=== PATIENT | male | born 1970 | race African-American/Black ===

== ENCOUNTER 2019-04-19 12:19 | Emergency (ER) | payer OTHER ==
[~2019-04-19] VITALS: Ht 198.1 cm; Wt 108.9 kg
[~2019-04-19 12:19] MED LIST: ASPIRIN325 PO; CARAFATE 11 GM/10 M1 PO; LIPITOR40 MG PO; LISINOPRIL10 MG PO; PEPCID20 MG PO; PLAVIX 75 MG TA75 M1 PO; PRILOSEC 20 MG20 MG PO; PRILOSEC40 MG PO; TOPROL XL25 MG PO
[2019-04-19 12:51] LABS: HEMATOCRIT 48.7 % (42.0-52.0); HEMOGLOBIN 16.1 gm/dL (14.0-18.0); MCH 27.2 pg (26.0-34.0); MCHC 33.1 g/dL (28.0-37.0); MCV 82.3 fL (80.0-100.0); PLATELET COUNT 333 thou/uL (150-400); RBC 5.92 mil/uL (4.50-6.00); RDW 16.7 % (10.5-14.5); WBC 7.4 thou/uL (4.0-11.0)
[2019-04-19 12:55] LABS: URINE BILIRUBIN NEGATIVE (Negative); URINE BLOOD NEGATIVE (Negative); URINE CLARITY CLEAR; URINE COLOR YELLOW; URINE GLUCOSE-RANDOM* NEGATIVE (Negative); URINE KETONES NEGATIVE (Negative); URINE LEUKOCYTES TRACE (Negative); URINE NITRITE NEGATIVE (Negative); URINE PROTEIN (DIPSTICK) NEGATIVE (Negative); URINE SPECIFIC GRAVITY <= 1.005 (1.005-1.035)
[2019-04-19 12:55] LABS: CALCIUM 10.1 mg/dL (8.5-10.1); CREATININE 1.2 mg/dL (0.7-1.3)
[2019-04-19 13:00] LABS: ALBUMIN 4.1 g/dL (3.4-5.0); TOTAL BILIRUBIN 0.4 mg/dL (<0.1-1.0); TOTAL PROTEIN 8.6 g/dL (6.4-8.2)
[2019-04-19 14:01] LABS: ABSOLUTE NEUTROPHILS 3.5 thou/uL (1.4-8.2); PLATELET ESTIMATE NORMAL
[2019-04-19 14:43] VITALS: BP 158/86
== END 2019-04-19 14:43 | disposition home or self-care (01) ==
LOC: ER 12:19
PROVIDERS: Nurse Practitioner
DX: K85.90 Acute pancreatitis without necrosis or infection, unspecified (principal); I10 Essential (primary) hypertension; F17.210 Nicotine dependence, cigarettes, uncomplicated; R11.2 Nausea with vomiting, unspecified

== ENCOUNTER 2019-12-24 18:47 | Inpatient (IN) | payer OTHER ==
[~2019-12-24] VITALS: Ht 195.6 cm; Wt 108.0 kg
[2019-12-24 18:49] VITALS: BP 110/70
[2019-12-24 19:03] LABS: ABSOLUTE NEUTROPHILS 6.1 thou/uL (1.4-8.2); BASOPHILS 0.8 % (0.0-2.0); EOSINOPHILS 1.9 % (0.0-3.0); HEMATOCRIT 42.1 % (42.0-52.0); HEMOGLOBIN 13.2 gm/dL (14.0-18.0); MCH 25.4 pg (26.0-34.0); MCHC 31.3 g/dL (28.0-37.0); MCV 81.1 fL (80.0-100.0); MONOCYTES 8.7 % (1.0-8.0); PLATELET COUNT 374 thou/uL (150-400); POLYS 44.6 % (36.0-66.0); RBC 5.19 mil/uL (4.50-6.00); RDW 16.4 % (10.5-14.5); WBC 13.7 thou/uL (4.0-11.0)
[2019-12-24 19:22] LABS: CALCIUM 8.7 mg/dL (8.5-10.1); CREATININE 1.6 mg/dL (0.7-1.3); POTASSIUM 3.4 mmol/L (3.5-5.1); TROPONIN-I 0.06 ng/mL (<0.06)
[2019-12-24 19:32] VITALS: BP 104/69
--- NOTE | 2019-12-24 21:06 | NUR ---
CHECKED WITH [facility] FOR RESPONSE TIMES, EMS INITIAL CALL AT 1805 RESPONSE TIME BY FIRE 1806 11 MINUTES OF CPR BY FIRE/EMS DEPARTED SCENE 183
[2019-12-24 23:00] VITALS: BP 110/71
[2019-12-25] VITALS (21 sets, daily range): BP systolic 111–135; BP diastolic 64–87
[2019-12-25 04:39] LABS: HEMATOCRIT 28.9 % (42.0-52.0); MCH 25.9 pg (26.0-34.0); MCHC 32.9 g/dL (28.0-37.0); MCV 78.6 fL (80.0-100.0); RBC 3.68 mil/uL (4.50-6.00); RDW 15.5 % (10.5-14.5); WBC 10.7 thou/uL (4.0-11.0)
[2019-12-25 04:45] LABS: HEMOGLOBIN 9.5 gm/dL (14.0-18.0)
[2019-12-25 05:05] LABS: ALBUMIN 1.9 g/dL (3.4-5.0); CREATININE 0.7 mg/dL (0.7-1.3); TOTAL BILIRUBIN 0.3 mg/dL (<0.1-1.0); TOTAL PROTEIN 4.3 g/dL (6.4-8.2)
[2019-12-25 05:59] LABS: POTASSIUM 2.4 mmol/L (3.5-5.1)
[2019-12-25 06:00] LABS: CALCIUM 4.9 mg/dL (8.5-10.1); TROPONIN-I 130.99 ng/mL (<0.06)
--- NOTE | 2019-12-25 07:51 | HC ---
[facility] [place] [address] CONSULTATION Name: CONSTANCE ESPINOSA Room #: 236-P [facility] IN M.R.#: [id number] Admission: 12/24/19 Attend Phys: Jose C Rios MD Discharge: Date of : 74 Report #: [id number] THIS REPORT FOR: cc: BOB - No family physician/PCP BOB - No family physician/PCP Adama Zuluaga MD ~ CC: [facility] physician/PCP Gino Armstrong DATE OF SERVICE: 12/24/2019 CARDIOLOGY CONSULTATION INDICATION: Chest pain/bqa-vy-nlrwnyby arrest. HISTORY OF PRESENT ILLNESS: This is a 49-year-old gentleman with a prior history of MS, noncompliance, tobacco use, alcohol abuse, presenting with lww-vh-xoefygqm arrest. Today, he was at home, had several alcoholic beverages at least 4. He came into the house, did not feel well. He proceeded to vomit. He went upstairs to take a shower. His found him having issues with respiratory distress, but still awake. She called 911. While lying on the ground, he became unresponsive. The family performed CPR while waiting for the EMS to arrive, apparently at least 30 minutes of CPR performed. EMS found the patient in V-fib, undergoing cardioversion and treated with epinephrine. No further episodes of VF en route to the ER. The ECG reveals sinus tachycardia with Q-waves inferiorly and ST elevations in the inferior leads and V2 and V3. The patient was initially confused and not responsive, but has become more alert. He describes having chest pain before his episode of vomiting and in respiratory distress. History of myocardial infarction. Stent placement was not performed. Records are not available at this time. He has been noncompliant, not following up with a doctor. ALLERGIES: None. MEDICATIONS: None. SOCIAL HISTORY: At least 2 packs per day of tobacco use. Also, drinks alcohol routinely. FAMILY HISTORY: Positive for premature CAD. REVIEW OF SYSTEMS: See HPI. PHYSICAL EXAMINATION: [facility] [address] [place] [address] CONSULTATION Name: CONSTANCE ESPINOSA Room #: [address] [place] [address] [place] ..#: [id number] Admission: 12/24/19 Attend Phys: Jose C Rios MD Discharge: Date of : 74 Report #: [id number] VITAL SIGNS: Blood pressure is 110/60 and heart rate is 118 beats per minute. GENERAL APPEARANCE: This is a well-developed, well-nourished male in mild distress. HEENT: Normocephalic, atraumatic. Oral mucosa is moist. NECK: Supple. LUNGS: CTA. CARDIAC: Regular rate and rhythm, S1, S2 positive. ABDOMEN: Soft, nontender. EXTREMITIES: No cyanosis, no edema. LABORATORY DATA: ECG reveals sinus tachycardia, Q-waves in the inferior leads, ST segment elevation of 1-2 mm in the inferior leads, V2 and V3. ASSESSMENT AND PLAN: 1. Vca-qo-wjeciaxu ventricular fibrillation arrest, status post cardioversion x 1. Remains in sinus rhythm. We will treat with amiodarone for any recurrence. 2. Inferior wall myocardial infarction. His EKG is consistent with prior inferior wall myocardial infarction. We will proceed with cardiac catheterization. This was discussed with the patient and his . They voiced understanding and wished to proceed. 3. Tobacco use, complete smoking cessation is advised. 4. Alcohol abuse, evaluate for withdrawal symptoms. Hydration for now. 5. Hypercholesterolemia, start statin therapy. <ELECTRONICALLY SIGNED> By: Adama Zuluaga MD 12/25/19 0751 29 45 Adama Zuluaga MD /nt
[2019-12-25 08:28] LABS: AMP/METHAMP Negative (Negative); BARBITURATES Negative (Negative); BENZODIAZEPINES Negative (Negative); COCAINE Negative (Negative); METHADONE Negative (Negative); OPIATES POSITIVE (Negative); PCP Negative (Negative)
[2019-12-25 09:22] LABS: MAGNESIUM 1.1 mg/dL (1.8-2.4); PHOSPHORUS 1.9 mg/dL (2.5-4.9)
--- NOTE | 2019-12-25 10:03 | NUR ---
PT AWAKE, RESTLESS, LIMITIED SHORT TERM MEMORY. ASK SAME QUESTIONS. C/O OF STERNAL AND SHOULDER PAIN. DID HAVE 30 MIN OF CHEST COMPRESSIONS AT HOME. MORPHINE GIVEN ORDERED. PARTIAL RELIEF. SEE IABP FLOWSHEET FOR PRESSURES. TIMING 1:2. IABP PLACED IN LIVE IN HOUSEKEEPER NANNY. MONITOR SHOWS SR WITH FREQ PVC, RUNS OF WIDE TACHYCARDIA, AND NARROW TACHYCARDIA. ECTOPY BECOMING LESS AFTER LIDOCAINE GTT ADDED TO AMIODORONE GTT INFUSING. AUGMENTED PRESSURES ON IABP >100. WEANING LEVOPHED GTT DONE. CONT ON INTERGRILIN AND HEPARIN GTT PER PROTOCOL. NO BLEEDING NOTED. GROIN AREAS SOFT. CONT TO MONITOR. PROGRESSING TOWARD GOALS CONT PLAN OF CARE. DR DIXON UPDATED ON PT STATUS THROUGHOUT NIGHT.
--- NOTE | 2019-12-25 13:37 | NUR ---
PT ALERT, ORIENTED X2. FORGETFUL AND RESTLESS AT TIMES. COMPLAINING OF STERNAL PAIN. GIVEN HYDROCODONE AND MORPHINE AND RESTING FOLLOWING. CHEST XRAY DONE THIS AM AND CALLED AND INFORMED DR DIXON OF RESULTS. SHOWING IABP NEEDS PULLED BACK [address] DIXON HERE AND HE REPOSITIONED IABP. ORDER FOR CENTRAL LINE PLACMENT. ATTEMPTED TO CONTACT PT'S X3 THIS AM BUT UNABLE TO REACH HER. ORDER TO INSERT CENTRAL LINE DUE TO MEDICAL NECESSITY. PT IN AGREEMENT TO PLACEMENT BUT UNABLE TO SIGN CONSENT DUE TO PAIN MEDICATIONS AND FORGETFULNESS. IV TEAM HERE FOR RIGHT IJ PLACEMENT. CHEST XRAY DONE FOLLOWING AND DR DIXON HERE AND DISCUSSED RESULTS WITH HIM. DR DIXON REPOSTIONED IABP 2ND TIME. NSR WITH FREQUENT PVC'S AND FREQUENT RUNS OF VTACH. DR DIXON AWARE. KCL, MAG, AND CALCIUM REPLACED THIS AM. WILL RECHECK LEVELS THIS AFTERNOON. REMAINS ON LIDOCAINE AND AMIODARONE GTTS. PER DR DIXON WE WILL START WEANING LIDOCAINE ONCE ELECTROLYTES HAVE NORMALIZED. CONTINUES ON HEPARIN GTT PER PROTOCOL. DR DIXON CHANGED GOAL APTT TO 60-80. FINAL BOTTLE OF INTEGRILLIN INFUSING. PT'S CALLED THIS AFTERNOON AND UPDATED. WILL CONTINUE TO MONITOR PATIENT.
--- NOTE | 2019-12-25 13:50 | NUR ---
VAT CONSULTED FOR A CL FOR A POST CODE PT FOR ACCESS FOR ICU. 6FRTL PLACED IN RT IJ AND TIP AT THE DSVC. PLEASE SEE INSERTION NOTE FOR DETAILS
--- NOTE | 2019-12-25 14:28 | EKG ---
[facility] [place] [address] [place] [address] ELECTROCARDIOGRAM REPORT Name: CONSTANCE ESPINOSA Room #: 236-P ADM IN M.R.#: [id number] Admission: 12/24/19 Attend Phys: Jose C Rios MD Discharge: Date of : 74 Report #: [id number] THIS REPORT FOR: cc: BOB - Imelda family physician/PCP BOB - No family physician/PCP Adama Zuluaga MD ~ THIS REPORT FOR: //name// [facility] ED Test Date: 2019-12-24 Test Time: 18:48:28 Pat Name: CONSTANCE ESPINOSA Department: Room: [facility] Gender: M Import Export Clerk: JSMITH : 1970 Requested By: Gino Armstrong Order Number: [id number] MD: Adama Zuluaga Measurements Intervals [place] Rate: 117 P: 53 UT: 138 QRS: 64 QRSD: 96 T: 68 QT: 347 QTc: 484 Interpretive Statements Sinus tachycardia Inferior infarct, acute (LCx) Borderline ST elevation, anterior leads Compared to ECG 10/02/2015 16:55:52 Myocardial infarct finding now present ST (T wave) deviation now present Sinus bradycardia no longer present Electronically Signed On 12-25-2019 14:26:14 CDT by Adama Zuluaga [email or web address] <ELECTRONICALLY SIGNED> By: Adama Zuluaga MD 12/25/19 1426 47 Adama Zuluaga MD /EPI
--- NOTE | 2019-12-25 14:29 | EKG ---
[facility] [place] [address] [place] [address] ELECTROCARDIOGRAM REPORT Name: CONSTANCE ESPINOSA Room #: 236-P ADM IN M.R.#: [id number] Admission: 12/24/19 Attend Phys: Jose C Rios MD Discharge: Date of : 74 Report #: [id number] THIS REPORT FOR: cc: BOB - Imelda family physician/PCP BOB - Imelda family physician/PCP Adama Zuluaga MD ~ THIS REPORT FOR: //name// [facility] Test Date: 2019-12-25 Test Time: 03:46:48 Pat Name: CONSTANCE ESPINOSA Department: Room: 236 Gender: M Health Care Technician: Krystyna GUEVARA RN : 1970 Requested By: Adama Zuluaga Order Number: [id number] MD: Adama Zuluaga Measurements Intervals [place] Rate: 85 P: 88 VT: 149 QRS: -118 QRSD: 136 T: 63 QT: 368 QTc: 438 Interpretive Statements Sinus rhythm Paired ventricular premature complexes Right bundle branch block Probable inferior infarct, old Anterolateral infarct, age indeterminate Compared to ECG 10/02/2015 16:55:52 Ventricular premature complex(es) now present Right bundle-branch block now present Myocardial infarct finding now present Sinus bradycardia no longer present Electronically Signed On 12-25-2019 14:27:26 CDT by Adama Zuluaga [email or web address] <ELECTRONICALLY SIGNED> By: Adama Zuluaga MD 12/25/19 1427 0346 0346 Adama Zuluaga MD /EPI
--- NOTE | 2019-12-25 14:30 | EKG ---
[facility] [place] [place] [address] ELECTROCARDIOGRAM REPORT Name: CONSTANCE ESPINOSA Room #: 236-P ADM IN M.R.#: [id number] Admission: 12/24/19 Attend Phys: Jose C Rios MD Discharge: Date of : 74 Report #: [id number] THIS REPORT FOR: cc: BOB - Imelda family physician/PCP BOB - No family physician/PCP Adama Zuluaga MD ~ THIS REPORT FOR: //name// [facility] Test Date: 2019-12-25 Test Time: 03:48:50 Pat Name: CONSTANCE ESPINOSA Department: Room: 236 Gender: M Director Of Managed Care: Krystyna GUEVARA RN : 1970 Requested By: Adama Zuluaga Order Number: [id number] MD: Adama Zuluaga Measurements Intervals [place] Rate: 93 P: 80 TN: 144 QRS: -168 QRSD: 134 T: 61 QT: 366 QTc: 456 Interpretive Statements Sinus rhythm RBBB and LPFB Anteroseptal infarct, age indeterminate Compared to ECG 10/02/2015 16:55:52 Left posterior fascicular block now present Right bundle-branch block now present Myocardial infarct finding now present Sinus bradycardia no longer present Electronically Signed On 12-25-2019 14:27:56 CDT by Adama Zuluaga [email or web address] <ELECTRONICALLY SIGNED> By: Adama Zuluaga MD 12/25/19 1427 0348 0348 Adama Zuluaga MD /EPI
--- NOTE | 2019-12-25 14:30 | EKG ---
[facility] [place] [address] [place] [address] ELECTROCARDIOGRAM REPORT Name: CONSTANCE ESPINOSA Room #: 236-P ADM IN M.R.#: [id number] Admission: 12/24/19 Attend Phys: Jose C Rios MD Discharge: Date of : 74 Report #: [id number] THIS REPORT FOR: cc: BOB - Imelda family physician/PCP BOB - Imelda family physician/PCP Adama Zuluaga MD ~ THIS REPORT FOR: //name// [facility] Test Date: 2019-12-25 Test Time: 04:00:26 Pat Name: CONSTANCE ESPINOSA Department: Room: [facility] Gender: M Thiokol Operator: Krystyna GUEVARA RN : 1970 Requested By: Adama Zuluaga Order Number: [id number] MD: Adama Zuluaga Measurements Intervals [place] Rate: 137 P: [place]: QRS: -89 QRSD: 146 T: 86 QT: 362 QTc: 547 Interpretive Statements Wide-complex tachycardia Ventricular premature complex Nonspecific IVCD with LAD Extensive anterior infarct, acute (LAD) Compared to ECG 10/02/2015 16:55:52 Ventricular premature complex(es) now present Intraventricular conduction delay now present Myocardial infarct finding now present Sinus bradycardia no longer present Electronically Signed On 12-25-2019 14:28:35 CDT by Adama Zuluaga [email or web address] <ELECTRONICALLY SIGNED> By: Adama Zuluaga MD 12/25/19 1428 9 0400 Adama Zuluaga MD /EPI
--- NOTE | 2019-12-25 14:44 | CATHLAB ---
[facility] [place] [address] INVASIVE PROCEDURE REPORT Name: CONSTANCE ESPINOSA Room #: 236-P ADM IN M.R.#: [id number] Admission: 12/24/19 Attend Phys: Jose C Rios MD Discharge: Date of : 74 Report #: [id number] THIS REPORT FOR: cc: FAM - No family physician/PCP FAM - No family physician/PCP Adama Zuluaga MD ~ APPROVED REPORT Study performed: 12/24/2019 19:25:35 Patient Details Patient Status: ED Room #: 236 The patient is a 49 year-old male Event Personnel Adama Zuluaga Accounting Clerks Supervisor, Palmer Mcneil RN, Felicitas Patel Monitor, Aubree Alicia RTR, CAT CRACKER OPERATOR Scrub Procedures Performed Art Access - R femoral artery* Left Heart Cath w/or w/o Coronaries [id number] [facility] Revasc AMI Total/Sub Single LAD C9606 AMIREVSING Hemostasis w/ Mynx Indication Arrhythmia, STEMI (>0 to less than or equal to 6 hours), Dyspnea, Chest pain, The patient presented with an out of hospital arrest. Found unresponsive at home by his . CPR of at least 30 minutes performed prior to EMS arrival. Initial assessment revealed ventricular fibrillation, undergoing cardioversion and epi. In the ER, noted to have ST segment elevation in inferior and anterior leads. Risk Factors Hypercholesterolemia, Coronary Artery Disease, Tobacco History (), The patient has a history of an inferior wall ME in 2014, presented to the ER. Taken to the Community Relations Assistant, found to have a a total occlusion in the proximal RCA but not amenable to angioplasty. Since then, he has been noncompliant with office visits to the doctor or medications. Previous Procedures/Diagnoses Previous ME Procedure Narrative [address] [address] INVASIVE PROCEDURE REPORT Name: CONSTANCE ESPINOSA Room #: 236-P [facility] IN [facility].#: [id number] Admission: 12/24/19 Attend Phys: Jose C Rios MD Discharge: Date of : 74 Report #: [id number] The Right Groin^ was infiltrated with 1% Lidocaine subcutaneous anesthesia. A PINNACLE 6FR Sheath #[id number] sheath was inserted into the RFA. Coronary angiography was performed using coronary diagnostic catheters. The right coronary system was accessed and visualized with a JR4 catheter. The left coronary system was accessed and visualized with a JL4 catheter. The left ventricle was accessed and visualized with a angled pigtail catheter. Left ventricular/Aortic Valve gradient assessed via catheter pullback. Left ventriculogram was performed in 30 degree projection. Pre-demployment femoral angiogram was performed . Closure device was deployed with a 6 Fr MYNXGRIP 6/7F #[id number]. The patient tolerated the procedure well and there were no complications associated with the procedure. There was no hematoma. Intraoperative Conscious Sedation Sedation start time: 19:32 Case end Time: 20:25 No conscious sedation given. Fluoro Time: 13.01 minutes Dose: DAP 05194 cGycm2 1943 mGy Contrast Type and Amount: Visipaque 300 ml Coronary Angiography The patient's coronary anatomy is co- dominant. Diagnostic Cath Left Main This is a large-caliber vessel, patent with no flow-limiting lesions. LAD The LAD is a large-caliber vessel with a total occlusion in the midsegment. Circumflex The left circumflex artery is a large-caliber vessel, codominant. There is mild disease in the proximal and mid segments, 30%. OM1 This is a moderate-sized caliber vessel, with mild disease proximally. OM2 This is a moderate-sized caliber vessel, with mild disease proximally. OM3 There is a moderate-sized caliber vessel, patent with no flow-limiting lesions. Right Coronary The RCA is totally occluded in the proximal segment. The PDA is filled via collateral circulation from the left coronary artery. Left Ventriculography The left ventricle is mildly dilated in size with Decreased contractility. The left ventricular ejection fraction is estimated to [facility] [address] [place] [address] INVASIVE PROCEDURE REPORT Name: CONSTANCE ESPINOSA Room #: 236-P [facility] IN ..#: [id number] Admission: 12/24/19 Attend Phys: Jose C Rios MD Discharge: Date of : 74 Report #: [id number] be 25-30%. There is severe hypokinesis involving the anterolateral, mid anterior, apical, mid to distal inferior segments. Hemodynamics The aortic pressure is 101/76 mmHg with a mean of 83 mmHg. The left ventricular pressure is 102/21 mmHg with a mean of mmHg. The left ventricular end diastolic pressure is 35 mmHg. PCI Technique Lesion Anticoagulation was achieved with Angiomax. Patient was preloaded with Effient. Percutaneous coronary intervention was performed on the mid left anterior descending artery segment. The lesion stenosis prior to intervention was 100% with AMOL 0 flow. A VISTA 6FR XB 3.5 #443278 Guide Catheter was used to engage the ostium. A Luge Wire .014 x 182CM #[id number] Interventional Guidewire was used to cross the lesion. BALLOON DILATION A Balloon catheter Euphora RX 3.0 x 12 #[id number] was inserted and inflated up to 10.00atm for 12seconds. Additional Inflation: 10.00atm for 15seconds. STENT DEPLOYMENT A drug-eluting stent RESOLUTE CLAY RX 4.0 X 26 #[id number] was inserted and inflated up to 16.00atm for 15seconds. POST STENT DEPLOYMENT BALLOON DILATION A Balloon catheter Euphora NC RX 4.0 x 12 #[id number] was inserted and inflated up to 18.00atm for 10seconds. Additional Inflation: 18.00atm for 19seconds. Final angiography reveals 5 % stenosis with AMOL 3 flow. COMMENTS During the diagnostic angiography, the patient had frequent episodes of ventricular tachycardia/polymorphic VT. He was managed with amiodarone, not requiring shock. The ventricular arrhythmia improved after PCI. PCI Technique Lesion 2 Percutaneous Coronary Intervention was performed on the first diagnonal branch segment. A VISTA 6FR XB 3.5 #106388 Guide Catheter was used to engage the ostium. A Luge Wire .014 x 182CM #[id number] Interventional Guidewire was used to cross the lesion. [facility] [address] [place] [address] INVASIVE PROCEDURE REPORT Name: CONSTANCE ESPINOSA Room #: 236-P [facility] IN M.R.#: [id number] Admission: 12/24/19 Attend Phys: Jose C Rios MD Discharge: Date of : 74 Report #: [id number] Balloon Dilation A Balloon catheter Euphora RX 3.0 x 12 #[id number] was inserted and inflated up to 10.00atm for 19seconds. Conclusion 1. Successful insertion of a drug-eluting stent into the total occlusion in the mid LAD. 2. Mild disease in the codominant left circumflex. 3. Chronically occluded RCA, the PDA fills via collateral circulation. 4. Moderately severe LV dysfunction. 5. Ventricular tachycardia during the procedure, managed with amiodarone. 6. Recommend dual antiplatelet therapy and aggressive risk factor management. <ELECTRONICALLY SIGNED> By: Adama Zuluaga MD 12/25/19 1442 144 144 Adama Zuluaga MD /INF
--- NOTE | 2019-12-25 14:55 | CATHLAB ---
[facility] [address] [place] [address] INVASIVE PROCEDURE REPORT Name: CONSTANCE ESPINOSA Room #: 236-P ADM IN M.R.#: [id number] Admission: 12/24/19 Attend Phys: Jose C Rios MD Discharge: Date of : 74 Report #: [id number] THIS REPORT FOR: cc: FAM - No family physician/PCP FAM - No family physician/PCP Adama Zuluaga MD ~ APPROVED REPORT Study performed: 12/24/2019 20:52:46 Patient Details Patient Status: ED Room #: The patient is a 49 year-old male Event Personnel Adama Zuluaga MD, Project Facilitator; Palmer Mcneil, RN, RN; Aubree Alicia, RTR, TOLL TRANSMISSION WORKER, Scrub; Felicitas Patel, Monitor Procedures Performed Coronary Angiogram;Atherectomy w/wo Plasty Sgl LAD [id number] ATHSINGLE PTCA Single Vessel LAD 5684003 PCISINGLE IABP Placement [id number] IABPI Indication Arrhythmia, STEMI (>0 to less than or equal to 6 hours), Chest pain, The patient initially presented with out of hospital cardiac arrest, undergoing cardioversion by EMS. He had frequent episodes of polymorphic VT during the diagnostic angiogram. This improved after angioplasty and stent insertion to the total LAD occlusion. While waiting to get transferred to the ICU, the patient became unresponsive. The monitor revealed polymorphic VT, requiring shock. He had another episode requiring another shock. Spontaneous sinus rhythm was restored after each shock. Risk Factors Hypercholesterolemia, Coronary Artery Disease, Tobacco History () Previous Procedures/Diagnoses Previous PCI, Previous [place] Procedure Narrative The Right Groin^ was infiltrated with 1% Lidocaine subcutaneous anesthesia. A PINNACLE 6FR Sheath #[id number] sheath was inserted into [facility] [address] [place] [address] INVASIVE PROCEDURE REPORT Name: CONSTANCE ESPINOSA Room #: 236-P [facility] IN [facility].#: [id number] Admission: 12/24/19 Attend Phys: Jose C Rios MD Discharge: Date of : 74 Report #: [id number] the [facility]. Coronary angiography was performed using coronary diagnostic catheters. The left coronary system was accessed and visualized with a 6FR JL4 #748032 catheter. 6F sheath was exchanged for intra-aortic balloon pump sheath. 40cc intra-aortic balloon pump placed through left femoral artery. Intraoperative Conscious Sedation No conscious sedation was used Fluoro Time: 7.07 minutes Dose: DAP 6455 cGycm2 870 mGy Contrast Type and Amount: Visipaque 300 ml Diagnostic Cath LAD The stent in the mid LAD had evidence of filling defect, consistent with thrombus. Hemodynamics The aortic pressure is 101/76 mmHg with a mean of 83 mmHg. PCI Technique Lesion Anticoagulation was achieved with Heparin and Integrilin. Percutaneous coronary intervention was performed on the mid left anterior descending artery segment. BALLOON DILATION The stent in the mid LAD had a filling defect consistent with thrombus. Atherectomy was performed with 2 passes, with removal of clot. A 4.0 mm noncompliant balloon was inflated within the stent, up to 18 shital. Final injections revealed AMOL-3 blood flow with a 0% residual stenosis. During the initial diagnostic imaging, the patient was hypotensive and had to be started on low-dose Levophed. Following the angioplasty procedure, an intra-aortic balloon pump was inserted through the left femoral artery access due to cardiogenic shock. During the procedure, he had another episode of ventricular tachycardia requiring shock. PCI Technique Lesion 2 Percutaneous Coronary Intervention was performed on the first diagnonal branch segment. PCI Technique Lesion 3 Percutaneous Coronary Intervention was performed on the mid left anterior descending artery segment. A SookasaTA 6FR XB 3.5 #052311 Guide Catheter was used to engage the ostium. A Luge Wire .014 x 182CM #940470 Interventional Guidewire was used to cross the [address] [address] INVASIVE PROCEDURE REPORT Name: CONSTANCE ESPINOSA Room #: 236-P [facility]#: [id number] Admission: 12/24/19 Attend Phys: Jose C Rios MD Discharge: Date of : 74 Report #: [id number] lesion. Balloon Dilation QuickCat extraction catheter was used in Left Anterior Descending Artery. Post Stent Deployment Balloon Dilation A Balloon catheter Euphora NC RX 4.0 x 15 #[id number] was inserted and inflated up to 16.00atm for 15seconds. Conclusion 1. Thrombectomy performed and final balloon angioplasty with a noncompliant balloon for thrombus in the LAD stent. There was cheondoism of AMOL-3 blood flow. 2. Cardiogenic shock, managed with pressor support and intra-aortic balloon pump insertion. 3. Significant ventricular arrhythmias, managed with amiodarone. 4. The patient is in critical condition, admitted to the ICU. <ELECTRONICALLY SIGNED> By: Adama Zuluaga MD 12/25/19 1453 1453 1453 Adama Zuluaga MD /INF
[2019-12-25 15:44] LABS: MAGNESIUM 1.9 mg/dL (1.8-2.4)
[2019-12-25 15:48] LABS: CALCIUM 7.9 mg/dL (8.5-10.1)
[2019-12-25 15:49] LABS: POTASSIUM 4.3 mmol/L (3.5-5.1)
[2019-12-25 16:45] LABS: FOLIC ACID 19.1 ng/mL (8.6-58.9)
[2019-12-25 16:47] LABS: CHOLESTEROL 280 mg/dL (<200); HDL CHOLESTEROL 26 mg/dL (>40); LDL CHOLESTEROL 233 mg/dL (<100); TC:HDL 10.8 Ratio (Not establshd); TRIGLYCERIDE 109 mg/dL (<150); VLDL 22 mg/dL (<40)
--- NOTE | 2019-12-25 17:01 | NUR ---
PT REPORTS PAIN IS MUCH BETTER THIS AFTERNOON. REPEAT K, MAG, CA++ DRAWN. PT CONTINUES TO HAVE FREQUENT PVC'S BUT LESS FREQUENT RUNS V-TACH. TROP INCREASED TO 161.[address] DIXON. PLAN TO RECHECK IN AM. PT RESTING COMFORTABLY THIS AFTERNOON. SPOKE WITH PT'S AT 1630 AND UPDATED HER.
--- NOTE | 2019-12-25 19:55 | NUR ---
Pt care assumed at 1900. IABP functioning without problem, setting remains 1:2. Augmented SBP approximately 20 mmHg higher than pt's SBP. Monitor sinus rhythm without ectopy at this time.
--- NOTE | 2019-12-25 22:18 | NUR ---
Dr. Zuluaga called in to check on pt. Pt remains without ectopy. Lidocaine dc'd and Amiodorone continued at 0.5 mg/min per Dr. Zuluaga's orders.
[2019-12-26] VITALS (37 sets, daily range): BP systolic 109–154; BP diastolic 72–101
--- NOTE | 2019-12-26 01:27 | NUR ---
Pt dropped O2 sat into mid 80's while this nurse was on break; charge nurse readjusted O2 sat probe but not change in pt's O2 sat. Pt titrated up to 9 L HFC and O2 sat now 95-97%. All other VS stable. Breath sounds remain clear, diminished at bases. Skin warm and dry. Pt occasionally c/o of pain in upper left shoulder when he coughs. Cough dry, non-productive.
--- NOTE | 2019-12-26 05:31 | NUR ---
Pt CIWA has been 4 to 6 this shift. Ativan 1 mg IVP given x1 to help pt sleep. IABP remains intact and functioning without problem. Augmented SBP remains 10-20 mmHg higher than pt's own BP. Lidocaine gtt dc'd at 2220. Pt remains on Amiodorone 0.5 mg/min and heparin gtt per protocol. Monitor remains sinus rhythm without ectopy. Both groin site drsgs C/D/I, no hematoma or oozing. Capillary refill < 3 sec all extremities, 2+ pulses except right pedal is 1+. Pt remains on 9 L HFC, O2 sat 94-98% Urine output > 30 cc/hr. Taking clear liquids without nausea. c/o left sided chest/shoulder pain; pain adequately controlled with Hydrocodone 2 tabs x1 and lidoderm patch.
[2019-12-26 06:02] LABS: CALCIUM 7.8 mg/dL (8.5-10.1); CREATININE 1.1 mg/dL (0.7-1.3); MAGNESIUM 1.8 mg/dL (1.8-2.4); POTASSIUM 3.9 mmol/L (3.5-5.1)
[2019-12-26 06:03] LABS: HEMATOCRIT 35.2 % (42.0-52.0); HEMOGLOBIN 11.4 gm/dL (14.0-18.0); MCH 25.2 pg (26.0-34.0); MCHC 32.3 g/dL (28.0-37.0); RBC 4.51 mil/uL (4.50-6.00); RDW 16.2 % (10.5-14.5); WBC 11.4 thou/uL (4.0-11.0)
[2019-12-26 06:10] LABS: TROPONIN-I 73.65 ng/mL (<0.06)
--- NOTE | 2019-12-26 10:53 | NUR ---
ASSUMED CARE 0700 12/26/19, PT ASSESSMENTS AND VSS COMPLETE PER ICU PROTOCOL AND DOCUMENTED. PT AXO 2-3, CONFUSED ON LOCATION AT TIMES, ABLE TO FOLLOW SIMPLE COMMANDS TO HIS BEST ABILITY. IABP IN PLACE 1:2, NO ECTOPI NOTED, [facility]ODUCTION SUPPORT SUPERVISOR AND DR DIXON HERE TO ROUND, RN TOLD BY [facility] TO GET AN APTT LAB @ 1100, AND RN TOLD BY DR DIXON TO GET AN ACT LAB. RN ATTEMPTS TO ORDER THE ACT BUT IS UNABLE, RN CALLS LAB AND LAB INFORMS RN THAT IT IS ONLY DONE IN MIX[employer]PERATOR [employer]OT [employer] AND A POINT OF CARE LAB. AT 0900, RN CALLS CATH-LAB AND LAKESHA STANFORD AGREES TO COME UP TO ICU AT 11 AM TO DRAW ACT LAB AND RUN. [facility] [employer] CALLED AT 1047, CHARLEY PICKS CALL AND RN IS UNFORMED THAT SOMEONE WILL BE COMING UP SHORTLY TO DRAW THE LAB. TORY, PT'S CALLED FOR AN UPDATE, CODE VERFIED AND SHE IS UPDATED ON STATUS.
--- NOTE | 2019-12-26 14:37 | EKG ---
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 : 1970 Requested By: Adama Zuluaga Order Number: [id number] MD: Brenton Fong Measurements Intervals [place] Rate: 93 P: 44 TN: 146 QRS: -144 QRSD: 138 T: 30 QT: 393 QTc: 489 Interpretive Statements Sinus rhythm Right bundle branch block Inferior infarct, old Anterior infarct, recent Compared to ECG 12/25/2019 04:00:26 Right bundle-branch block now present Electronically Signed On 12-26-2019 14:35:08 CDT by Brenton Fong [email or web address] <ELECTRONICALLY SIGNED> By: Brenton Fong MD 12/26/19 1435 1002 1002 Brenton Fong MD /EPI
--- NOTE | 2019-12-26 15:08 | NUR ---
INITIAL ASSESSMENT: Received consult. JOSEPHINE reviewed chart and spoke [facility] attending physician. Pt was admitted from home following cardiac arrest at home. Pt had emergent cardiac cath on 12/23. Pt remains in ICU. Pt's COVID-19 test was negative. Pt is febrile and on 9L of O2 via NC. Neuro consulted to evaluate pt due to encephalopathy. JOSEPHINE spoke with pt's via phone. Introduced role of SW. Pt is normally alert/orientated x 4. 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 Pt's states she could not find pt's health insurance card and is trying to find if he has health insurance through his employer. Pt's states she found his dental card. Pt is usually independent with ADLs. Does not use any DME. No hx of services or post acute placement. Pt does not have a PCP. Pt's states that pt is very non-compliant and does not take his prescribed medications. Pt's asked about short-term disability through his employer. JOSEPHINE encouraged pt's to call pt's employer to see if pt qualifies for short-term disability. Provided contact info for pt's employer to contact JOSEPHINE. Pt's states that pt will need a PCP and she will assist pt with obtaining and new physician. Pt's EF is 30%. [facility] customer retention representative to discuss Medicaid application with pt's . JOSEPHINE provided updated to [employer]. Pt will need therapy evaluations when pt is able to participate. JOSEPHINE is following to assist as needed with discharge planning.
[2019-12-27] VITALS (26 sets, daily range): BP systolic 99–132; BP diastolic 61–88
[2019-12-27 01:08] LABS: GLYCOHEMOGLOBIN (HGB A1C) 6.2 % (4.8-5.6)
--- NOTE | 2019-12-27 01:42 | NUR ---
SEE [facility] FOR ASSESSMENT PT. PT REMAINS FORGETFUL IN REGARDS TO CARDIAC EVENT AND WHY HE IS IN HOSPITAL OTHERWISE ORIENTED AND APPROPRIATE. FEBRILE WITH TEMP 100.5, LT SIDE OF CHEST HURTS WITH COUGH. 0N 5L NC. O2SAT 100. NOTIFIED ENVIRONMENTAL STUDIES PROGRAM DIRECTOR OF TEMP. ORDERS RECIEVED.
--- NOTE | 2019-12-27 01:48 | NUR ---
UPDATED GIVEN TO PT . SHE CONCERNED WITH FEVER AND PNUEMONIA. SPOKE WITH GLUER AND WEDGER AGAIN WITH CHEST XRAY RESULTS. ORDERS RECEIVED. ABX STARTED, AND 20MG LASIX GIVEN. TEMP REMAINS 100.4. LS-DIMINISHED. CONT TO ENC COUGH, DEEP BREATH. NO RESP DISTRESS. 02AT 4LNC WITH SAT 99%. WILL CONT TO MONITOR.
[2019-12-27 07:15] LABS: CALCIUM 8.8 mg/dL (8.5-10.1); CREATININE 1.2 mg/dL (0.7-1.3); PHOSPHORUS 1.8 mg/dL (2.5-4.9); POTASSIUM 3.9 mmol/L (3.5-5.1)
[2019-12-27 07:18] LABS: TROPONIN-I 34.04 ng/mL (<0.06)
--- NOTE | 2019-12-27 07:27 | NUR ---
SEE [facility] FOR ASSESSMENT. TEMP DOWN 98.5 THIS AM. PT UP TO BSC. GAIT STEADY. GROIN SITES OK. CONT TO C/O OF LT UPPER CHEST PAIN. HURTS TO RAISE ARM, AND HAS BEEN HIS C/O SINCE ADMISSION. CONT TO ASK "WHY IT WOULD HURT". UNABLE TO RETAIN INFORMATION REGARDING EVENTS PRIOR TO HOSPITALIZATION. HYDROCONE GIVEN THIS AM ORDERED FOR LT SHOULDER PAIN. CONT PLAN OF CARE. UPDATED ON PT STATUS, AND START OF ABX. CONT PLAN OF CARE.
--- NOTE | 2019-12-27 08:41 | EKG ---
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: Amos BAY : 1970 Requested By: Lou Barone Order Number: [id number] MD: Adrian Garcia Measurements Intervals [place] Rate: 77 P: 52 SC: 143 QRS: -128 QRSD: 141 T: 46 QT: 447 QTc: 506 Interpretive Statements Sinus rhythm Right bundle branch block Probable inferior infarct, old Anterior infarct, recent Compared to ECG 12/26/2019 10:02:04 No significant changes Electronically Signed On 12-27-2019 8:39:12 CDT by Adrian Garcia [email or web address] <ELECTRONICALLY SIGNED> By: Adrian Garcia MD, [facility] 12/27/19 0839 9 08 Adrian Garcia MD, [facility] /EPI
--- NOTE | 2019-12-27 16:00 | NUR ---
PT CALLED UNIT UPSET THAT PT WAS BEING TRANSFERED OUT OF THE ICU. SHE ASKED IF HE COULD STAY ANOTHER DAY. DR. ALVAREZ CALLED WITH NO RESPONSE. DR. DIXON CALLED FOR CLEARENCE OF CT SCAN AND MD STATES TO LEAVE PT IN ICU FOR ANOTHER DAY.
--- NOTE | 2019-12-27 17:03 | NUR ---
SW reviewed chart and spoke with attending physician. Pt is progressing towards goals for discharge. Therapy ordered today to evaluate pt for discharge needs. Pt does not have health insurance. [employer] to follow up with pt/family. SW is following to assist as needed with discharge planning.
--- NOTE | 2019-12-27 18:28 | NUR ---
PT CALLED UPDATE GIVEN REGARDING CT SCAN. EMOTIONAL SUPPORT GIVEN.
--- NOTE | 2019-12-27 20:00 | NUR ---
ASSUMED CARE OF PT. AWAKE AND ALERT. RESTING QUIETLY. WATCHING TV. UP TO TOILET VOIDED APPROX 500 CC. REMAINS IN SINUS RHYTHM. BILAT GROIN SITE DRESSINGS DRY AND INTACT. AFEBRILE. PULSES INTACT. PROGRESSING TOWARD GOALS. WILL CONT TO MONITOR.
[2019-12-28] VITALS (9 sets, daily range): BP systolic 100–127; BP diastolic 57–84
--- NOTE | 2019-12-28 06:00 | NUR ---
PT HAS SLEPT MOST OF NIGHT. VSS SINUS RHYTHM WITH BBB VOIDED 1100 CC DARK MAUREEN URINE TONIGHT. PT IS ANXIOUS TO GET A SHOWER TODAY ON CCU PROGRERSSING TOWARD GOALS. BIALT GROIN SITES INTACT. PULSES INTACT. WILL CONT TO MONITOR.
[2019-12-28 08:26] LABS: HEMATOCRIT 38.2 % (42.0-52.0); HEMOGLOBIN 12.4 gm/dL (14.0-18.0); MCH 25.5 pg (26.0-34.0); MCHC 32.5 g/dL (28.0-37.0); MCV 78.4 fL (80.0-100.0); RBC 4.88 mil/uL (4.50-6.00); RDW 15.9 % (10.5-14.5); WBC 7.2 thou/uL (4.0-11.0)
[2019-12-28 08:29] LABS: CALCIUM 8.6 mg/dL (8.5-10.1); CREATININE 1.1 mg/dL (0.7-1.3); POTASSIUM 3.6 mmol/L (3.5-5.1)
--- NOTE | 2019-12-28 10:45 | NUR ---
Pt transferred to 2 N/CCU via wheelchair. Pt is alert and oriented. KAL. Assisted to bedside recliner with chair alarm. Report called to receiving nurseJuliana prior to transfer. CCU Nurse and AUTO ELECTRICIAN present upon arrival to attach to monitoring and evaluation advisor and orient to new room. VSS.
--- NOTE | 2019-12-28 11:40 | NUR ---
ASSUMED CARE OF PATIENT AT 1030 FROM ICU. REPORT RECEIVED FROM HIEN SARMIENTO. PATIENT AMBULATED TO CHAIR FROM WHEELCHAIR, STEADY WITH A STAND BY ASSIST. TELE PLACED ON PATIENT. PATIENT ANXIOUS TO TAKE A SHOWER, AWAITING APPROVED FROM CARDIOLOGY. DENIES ANY PAIN. RESTING IN RECLINER WITH LEGS UP. CONTINUE WITH POC.
--- NOTE | 2019-12-28 14:18 | NUR ---
JOSEPHINE received call from pt's . Reviewed chart and spoke with attending physician. Pt transferred to from ICU earlier today. Consult received to assist with Medicaid application and life vest. JOSEPHINE contacted cardiology CLERK OF SCALES, who states the life vest has already been ordered. JOSEPHINE spoke with pt's to provide update. Pt's spoke with the HR dept at pt's employer. Pt only has dental insurance through his employer. 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 Pt's last day of work was last Wednesday, 12/21. His last pay check was issued on Wednesday, 12/25. Pt's states he is not eligible for FMLA through his employer. JOSEPHINE discussed need for documentation to provide to [employer] to assist with completion and submission of Medicaid applications. Pt's states she has not spoken with [employer] yet. JOSEPHINE contacted [employer] front desk representative to request them to contact pt's . Pt's to send documentation and bank statements to JOSEPHINE. Clinical info faxed to [employer] for review. Will fax additional documentation when obtained. JOSEPHINE is following to assist as needed with discharge planning.
--- NOTE | 2019-12-28 15:56 | 2DMMODE ---
[facility] [address] [place] [address] 2 D/M-MODE ECHOCARDIOGRAM Name: CONSTANCE ESPINOSA Room #: 206-P ADM IN M.R.#: [id number] Admission: 12/24/19 Attend Phys: Walter Cruz Discharge: Date of : 74 Report #: [id number] THIS REPORT FOR: cc: FAM - No family physician/PCP FAM - No family physician/PCP Adama Zuluaga MD ~ APPROVED REPORT Study performed: 12/28/2019 13:07:11 EXAM: Comprehensive 2D, Doppler, and color-flow Echocardiogram Patient Location: Bedside Room #: 206 Status: routine BSA: 2.38 HR: 78 bpm BP: 100/61 mmHg Rhythm: NSR Other Information Study Quality: Good Indications Status post caridac arrest, MS, stent. Hx: MS. 2D Dimensions IVSd: 11.00 (7-11mm) LVOT Diam: 22.70 (18-24mm) LVDd: 57.73 mm PWd: 11.00 (7-11mm) LVDs: 49.71 (25-40mm) Aortic Root: 32.48 mm Volumes Left Atrial Volume (Systole) Single Plane 4CH: 50.95 mL Single Plane 2CH: 64.55 mL LA ESV Index: 27.00 mL/m2 Aortic Valve AoV Peak Wily.: 1.50 m/s AO Peak Gr.: 9.05 mmHg LVOT Max P.95 mmHg LVOT Max V: 1.11 m/s KESHA Vmax: 2.99 cm2 [facility] [address] [place] [address] 2 D/M-MODE ECHOCARDIOGRAM Name: CONSTANCE ESPINOSA Room #: 206-P [facility] IN M.R.#: [id number] Admission: 12/24/19 Attend Phys: Walter Meadows Discharge: Date of : 74 Report #: [id number] Mitral Valve E/A Ratio: 0.8 MV Decel. Time: 359.61 ms MV E Max Wily.: 0.47 m/s MV A Wily.: 0.56 m/s MV PHT: 104.29 ms IVRT: 107.27 ms Pulmonary Valve PV Peak Wily.: 1.22 m/s PV Peak Gr.: 5.98 mmHg Pulmonary Vein P Vein S: 0.69 m/s P Vein D: 0.49 m/s P Vein S/D Ratio: 1.41 Tricuspid Valve TR Peak Wily.: 2.38 m/s RAP Estimate: 5.00 mmHg TR Peak Gr.: 23.00 mmHg PA Pressure: 28.00 mmHg Left Ventricle The left ventricle is normal size. Regional wall motion abnormalities are noted. There is normal left ventricular wall thickness. Left ventricular systolic function is moderate to severely decreased. Apical thrombus noted. LVEF is 30%. Mild diastolic dysfunction is present (impaired relaxation pattern). Right Ventricle The right ventricle is normal size. The right ventricular systolic function is low normal. Atria The left atrium size is normal. The right atrium size is normal. Aortic Valve The aortic valve is normal in structure. Minimally calcfied. No aortic regurgitation is present. There is no aortic valvular stenosis. Mitral Valve The mitral valve is normal in structure. Mild to moderate mitral regurgitation. Tricuspid Valve [facility] [address] [address] 2 D/M-MODE ECHOCARDIOGRAM Name: JESÚSCONSTANCE Room #: 206-P [facility] IN M.R.#: [id number] Admission: 12/24/19 Attend Phys: Walter Meadows Discharge: Date of : 74 Report #: [id number] The tricuspid valve is normal in structure. Trace tricuspid regurgitation. Estimated PAP is 20-25mmHg. Pulmonic Valve The pulmonary valve is normal in structure. Trace pulmonic regurgitation. Great Vessels The aortic root is normal in size. The ascending aorta is normal in size. IVC is normal in size and collapses >50% with inspiration. Pericardium There is no pericardial effusion. <Conclusion> The left ventricle is normal size. Left ventricular systolic function is moderate to severely decreased. Regional wall motion abnormalities are noted. Apical thrombus noted. Mild diastolic dysfunction is present (impaired relaxation pattern). The right ventricle is normal size. The left atrium size is normal. Mild to moderate mitral regurgitation. Trace tricuspid regurgitation. Estimated PAP is 20-25mmHg. <ELECTRONICALLY SIGNED> By: Adama Zuluaga MD 12/28/19 1555 1555 1555 Adama Zuluaga MD /INF
--- NOTE | 2019-12-28 17:28 | NUR ---
ASSUMED CARE OF PATIENT AT 1030 FROM ICU. REPORT FROM HIEN SARMIENTO. PATIENT A&O X 4. AMBULATED FROM W/C TO BED WITH A STAND BY ASSIST, SOMEWHAT STEADY ON FEET. DENIES ANY PAIN. PT HAS NOT HAD BM SINCE MORNING OF ADMISSION, DENIES DISCOMFORT. POSITIVE FLATUS, MINIMAL APPETITE, DRINKING WATER, MINIMAL ACTIVITY AND TRYING TO DECREASE THE AMOUNT OF NARCOTICS TAKEN. PATIENT SAT IN CHAIR HALF OF THE DAY. PATIENT TO CONTINUE WITH POC.
[2019-12-29 03:21] VITALS: BP 129/68
--- NOTE | 2019-12-29 04:24 | NUR ---
SLEPT PART OF SHIFT. NON CARDIAC CHEST PAIN FROM CPR RELIEVED BY PAIN MEDICATION PRN. TURNS SELF IN BED AND UP WITH ASSIST OF ONE. WORKING ON GOALS AND PLAN OF CARE FOR NOC. PROGRESSING SLOWLY TOWARDS DISCHARGE GOALS. CONTINUE TO ASSES.
[2019-12-29 07:18] LABS: PROTIME 10.6 Seconds (9.3-11.4)
[2019-12-29 07:56] VITALS: BP 123/67
--- NOTE | 2019-12-29 08:51 | NUR ---
ASSUMED CARE OF PT AT SHIFT CHANGE, SLEEPING, LIKES ROOM COLD FOR SLEEP. ONLY COMPLAINT IS THE SORENESS IN CHEST FROM CPR, HE WONDERS IF RIBS BROKE, HE FEELS/HEARS POP W/MOVEMENT, WILL DOCTOR CHHAYA. CARDIAC CLINICAL DOCUMENTATION SPECIALIST WORKING W/PT. GOOD APPETITE, DEEP SLOW EFFECTIVE BREATHING ENCOURAGED/ SEE SEPARATE INTERVENTIONS FOR ASSESSMENTS. DECLINES NEED FOR NICOTINE PATCH AT THIS TIME. WILL CONTINUE TO MONITOR
[2019-12-29 11:53] VITALS: BP 112/60
[2019-12-29 16:11] VITALS: BP 121/62
--- NOTE | 2019-12-29 16:57 | NUR ---
[facility] APPLICATION FOR [facility] LIFE VEST COMPLETED, SIGNED BY PT AND FAXED TO [facility]. CONFIRMED WITH THEIR LIASON ALDO. [facility] TO DELIEVER TO PT ROOM ONCE APPROVED. POSSIBLE THIS WEEKEND. CM UNABLE TO VOUCHER ANY DC MEDS UNTIL WEDNESDAY. PT AND SPOUSE ANTICIPATING DC WEDNESDAY IF CLEARED BY CARDIOLOGY. [facility] CUSTOMER SERVICE CAN BE CONTACTED IF DC'D OVER THE WEEKEND.
[2019-12-29 19:55] VITALS: BP 128/59
[2019-12-30 04:24] VITALS: BP 131/58
[2019-12-30 05:12] LABS: INR 1.1; PROTIME 10.9 Seconds (9.3-11.4)
--- NOTE | 2019-12-30 05:50 | NUR ---
ASSUMED CARE OF PATIENT AT 1900. PATIENT PROGRESSING WELL TOWARDS GOALS. PATIENT IS INDEPENDENT IN ROOM. VITAL SIGNS STABLE THROUGHOUT NIGHT. PATIENT REPORTS IMPROVING PAIN AND STATES THATS THAT HE IS "SORE IN HIS SHOULDER/CHEST WHERE HIS SON WAS BOUNCING ON HIM" AFTER HE HAD COLLAPSED. CURRENTLY RATES PAIN A 1/10 AND STATES IT IS AN ACCEPTABLE LEVEL.
[2019-12-30 08:00] VITALS: BP 130/74
--- NOTE | 2019-12-30 11:21 | NUR ---
Received awake on bed. Due medications given as prescribed, able to swallow meds w/o difficulty. On room air. Vital signs stable. On telemetry monitoring- stips attached to chart; no complaints of chest pain, heaviness or crushing sensation. A+Ox4. On regular diet- encouraged to eat and drink; explained how to order from the alternative menu; no nauea, no vomiting and no abdominal pain noted. Able to have a bowel movement today- charted. Continent of bowel and bladder. No skin issues noted. With IJ at R- dressing C/D/I, flushing well. Independent with ADLs. Still with soreness at L chest/shoulder from previous compressions done- lidocaine patch applied to site as ordered. Seen and examined by Dr Cruz- to remove IJ, may ambulate in the hallway; possible discharge on Wednesday. To continue monitoring patient.
[2019-12-30 11:30] VITALS: BP 115/67
[2019-12-30 16:30] VITALS: BP 117/58
[2019-12-30 20:26] VITALS: BP 116/63
--- NOTE | 2019-12-31 04:47 | NUR ---
ASSUMED CARE OF PATIENT AT 1900. PATIENT PROGRESSING WELL TOWARDS GOALS. PATIENT REVEALED THAT HE IS STILL HAVING A HARD TIME EATING AND THAT "FOOD JUST DOESN'T TASTE THE SAME." PATIENT REPORTED NO PAIN THROUGHOUT SHIFT. AT 0010 PATIENT HAD A NINE COUNT RUN OF VT. PATIENT ASYMPTOMATIC, DENIED CHEST PAIN OR SOA. PATIENT STATED THAT HE HAD BEEN UP WALKING. PATIENT AMBULATES FREQUENTLY AROUND HIS ROOM.
[2019-12-31 05:00] VITALS: BP 121/72
[2019-12-31 05:59] LABS: INR 1.2; PROTIME 12.1 Seconds (9.3-11.4)
[2019-12-31 07:00] VITALS: BP 114/62
[2019-12-31 10:07] LABS: CALCIUM 8.5 mg/dL (8.5-10.1); CREATININE 1.1 mg/dL (0.7-1.3); MAGNESIUM 1.9 mg/dL (1.8-2.4); POTASSIUM 3.8 mmol/L (3.5-5.1)
[2019-12-31 12:31] VITALS: BP 109/56
--- NOTE | 2019-12-31 16:48 | NUR ---
ASSUMED CARE APPROX 0700. PT ALERT AND ORIENTED X4. ASSESSMENTS CHARTED AND VSS. PT REPORTS NO CHEST PAIN THIS SHIFT. PT SR W/ BBB ON TELE MONITOR. PT ON ROOM AIR WITH NO SIGNS OF RESPIRATORY DISTRESS THIS SHIFT. APPETITE IMPROVED TODAY. POSSIBLE D/C TOMORROW. WILL CONTINUE TO MONITOR.
[2019-12-31 17:00] VITALS: BP 115/60
[2019-12-31 20:02] VITALS: BP 107/57
[2020-01-01 03:41] LABS: INR 1.3; PROTIME 13.3 Seconds (9.3-11.4)
[2020-01-01 03:53] VITALS: BP 110/63
--- NOTE | 2020-01-01 06:03 | NUR ---
ASSESSMENTS CHARTED. MEDS CHARTED. RESTING IN ROOM DURING SHIFT. UP AT DANICA. SINUS RHYTHM WITH BBB ON TELEMETRY DURING SHIFT. LUNGS CLEAR. ON INITAL ASSESSMENT, LIDOCAINE PATCH WAS FOUND STILL ATTACHED TO THE PLASTIC SHEET. PATCH CORRECTLY APPLIED AND RESCANNED TO TIME THE APPLICATION. CONTACTED PHARMACY. PATIENT IS WAITING FOR POSSIBLE MRI AND A [facility] VEST. DENIED PAIN DURING SHIFT.
[2020-01-01 07:50] VITALS: BP 116/59
--- NOTE | 2020-01-01 13:54 | NUR ---
spoke with Brit with [facility]. Harriett approved. Request to come to hospital for instruct. Sp with engine house helper who gave permission per CNO. Notified COVID specialty food products supervisor of 1400 visit from and Audrey Alex RN with [facility]. Sydney STANFORD. Updated phys.
[2020-01-01 15:00] VITALS: BP 104/53
--- NOTE | 2020-01-01 18:41 | HC ---
[facility] [place] [address] [place] [address] CONSULTATION Name: CONSTANCE ESPINOSA Room #: 206-P [facility] IN M.R.#: [id number] Admission: 12/24/19 Attend Phys: Walter Cruz Discharge: Date of : 74 Report #: [id number] THIS REPORT FOR: cc: BOB - Imelda family physician/PCP BOB - Imelda family physician/PCP Robert Wolfe MD ~ CC: BOB physician/PCP Walter Cruz DATE OF SERVICE: 12/26/2019 HISTORY OF PRESENT ILLNESS: This is a 49-year-old male patient who was evaluated by me for altered mental status. The nurses tell me that his short-term memory is poor. He thinks he is back to the baseline. I reviewed all his records and it does look like he had some short-term memory problem, but it also looks like he has a pretty significant problem with drinking and smoking. He was admitted with cardiac problem at this time and had a cardiac arrest and he is becoming better from that. REVIEW OF SYSTEMS: Positive for cardiac problem. He had syncope in the past, but the monitor was negative. He had an CA. He had surgery for the hemorrhoid. His 14-point review of systems was otherwise noncontributory. PAST MEDICAL HISTORY: Positive for syncope. He thinks he may have some memory issues, but I am not sure how bad it is. FAMILY HISTORY: Unremarkable. SOCIAL HISTORY: He smokes and drinks. PHYSICAL EXAMINATION: The patient's examination indicates he is alert. He is responsive. His speech looks intact. He can tell me what month it is, but could not tell me the date. He could tell me what hospital he is in. Cranial nerve examination 2-12 looks mostly noncontributory. His strength, sensation, reflexes and tone is symmetrical. Reflexes are somewhat diminished on both sides. There is no papilledema. There is no carotid bruit. Cardiac examination indicates that he underwent a cardiac intervention. He is a very well-developed individual. His temperature is 99.1, respirations 15, pulse is 93. LABORATORY DATA: His white count is 11.4. IMAGING STUDIES: No imaging study was done. IMPRESSION: This patient may have some memory deficit in the baseline that may have become worse with the cardiac problem. He needs further workup and he [address] [address] CONSULTATION Name: CONSTANCE ESPINOSA Room #: 206-P ADM IN M.R.#: [id number] Admission: 12/24/19 Attend Phys: Walter Cruz Discharge: Date of : 74 Report #: [id number] needs to be stabilized. He is on a balloon pump. Once that is off, the first thing we would like to do is a CT of the head and his TSH and vitamin B12 is already done and he need to stop drinking alcohol. He needs thiamine, but he is already on that. Thank you very much for this referral and we will follow this patient along with you. <ELECTRONICALLY SIGNED> By: Robert Wolfe MD 01/01/20 1841 1256 1332 Robert Wolfe MD /nt
[2020-01-01 19:58] VITALS: BP 116/50
--- NOTE | 2020-01-01 20:38 | NUR ---
RECEIVED PT'S CARE AROUND 0710; PT. ON BED; AOX4 DURING SHIFT CHANGED; DURING AM ASSESSMENT NO C/O PAIN; ST. WILL GO HOME TODAY; 01/01/2020; EDUCATED ABOUT D/C PROCESS; ST. UNDERSTANDING; AM MEDICATIONS GIVEN; EDUCATED ABOUT BLOOD THINNERS; ST. UNDERSTANDING; AROUND 1400 NURSE & AT THE BED SIDE TO BE EDUCATED ABOUT VEST; NO D/C ORDERS ON PLACE; PHYSICIAN PAGED & NOTIFIED; PER INTERNET MARKETER; PHYSICIAN ST. WILL NOT D/C PT. DUE INR; PT. 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 CALMER & APOLOGIZED; SR ON THE MONITOR; ASSESSMENT CHARGED; FOLLOWING POC; PASSED ON REPORT;
[2020-01-02 05:29] VITALS: BP 115/56
[2020-01-02 05:45] LABS: INR 1.3; PROTIME 13.8 Seconds (9.3-11.4)
[2020-01-02 07:52] VITALS: BP 111/55
--- NOTE | 2020-01-02 08:11 | NUR ---
ASSESSMENTS CHARTED, MEDS CHARTED GIVEN. PATIENT RESTING DURING SHIFT. PATIENT WAS UPSET THAT HE NEEDED TO STAY ANOTHER NIGHT DUE TO HIS INR LEVEL. HEPARIN DOSE WAS INCREASED, INR LEVEL THIS MORNING HAD NOT CHANGED. PATIENT RECEIVED [facility] VEST YESTERDAY AND CAME IN FOR BOTH TO GET EDUCATION. DENIES PAIN DURING SHIFT. FALL PRECAUTIONS IN PLACE DURING SHIFT.
[2020-01-02 12:58] VITALS: BP 101/58
[2020-01-02 13:00] VITALS: BP 112/61
--- NOTE | 2020-01-02 14:03 | HC ---
[facility] [place] [address] CONSULTATION Name: CONSTANCE ESPINOSA Room #: 206-P ADM IN M.R.#: [id number] Admission: 12/24/19 Attend Phys: Walter Cruz Discharge: Date of : 74 Report #: [id number] THIS REPORT FOR: cc: BOB - Imelda family physician/PCP BOB - Imelda family physician/PCP Brenton Fong MD ~ CC: [facility] physician/PCP Walter Cruz ELECTROPHYSIOLOGY CONSULTATION REASON FOR CONSULTATION: VF arrest. HISTORY OF PRESENT ILLNESS: The patient is a 49-year-old with history of coronary artery disease, tobacco abuse, who had a witnessed VF arrest at home, brought to the Emergency Room, found to be having an acute ST segment elevation IN, underwent stent placement by Dr. Zuluaga, but continued to have recurrent ventricular arrhythmias was taken back to the technology lab teacher and no interventions were required and a balloon pump was placed. Overnight, he was continued on amiodarone and lidocaine was eventually discontinued. Since this episode, he has had no further ventricular arrhythmias. He remains on amiodarone therapy. He denies any chest pain. His shortness of breath is stable. He denies PND or orthopnea. He denies fevers or chills. REVIEW OF SYSTEMS: A 12-point review of systems was performed and was negative other than mentioned above. PAST MEDICAL HISTORY: As above. SOCIAL HISTORY: He quit smoking during this hospitalization. FAMILY HISTORY: Noncontributory. ALLERGIES: None. MEDICATIONS: Have been reviewed. He is currently on carvedilol 6.25, amiodarone 200 b.i.d., aspirin, Lipitor, Effient, losartan and warfarin as well as doxycycline. LABORATORY DATA: Have been reviewed. Creatinine is 1.1. PHYSICAL EXAMINATION: VITAL SIGNS: Reviewed. GENERAL: No acute distress. HEENT: Oropharynx clear. NECK: Supple, no thyromegaly. HEART: Regular rate and rhythm. [facility] [address] [place] [address] CONSULTATION Name: CONSTANCE ESPINOSA Room #: 206-[facility] IN M.R.#: [id number] Admission: 12/24/19 Attend Phys: Walter Cruz Discharge: Date of : 74 Report #: [id number] LUNGS: Clear to auscultation bilaterally. ABDOMEN: Soft, nontender. EXTREMITIES: No clubbing, cyanosis, edema. NEUROLOGIC: Cranial nerves 2-12 are intact. Peripheral pulses are intact. ASSESSMENT: Ventricular fibrillation arrest in the setting of acute ST segment elevation myocardial infarction. Based on these findings, the patient does not meet criteria for ICD implantation. He does have a low ejection fraction. I did discuss that I would recommend that he wear a LifeVest at discharge. I would continue with amiodarone therapy at 400 mg a day. We will need to reassess his LV systolic function in 3 months. If EF remains less than 35%, we can discuss implantation of an ICD for primary prevention of sudden cardiac . <ELECTRONICALLY SIGNED> By: Brenton Fong MD 01/02/20 1403 1150 1614 Brenton Fong MD /nt
--- NOTE | 2020-01-02 14:30 | NUR ---
Nutrition: pt seen for LOS. Admit with out of hospital Vfib arrest. S/P Zoll vest yesterday. Was to discharge 12/31 but had issues with INR so remains admitted. Eating well. No recent weight changes. Voices no questions/concerns for RD. Low nutrition risk.
[2020-01-02 17:51] VITALS: BP 113/60
--- NOTE | 2020-01-02 20:00 | NUR ---
PT SITING IN THE CHAIR WATCHING TV. DENIES ANY SOB OR CHEST PAIN NOTED. ALERT AND ORIENTED X4. ON ROOM AIR. HOSPITALITY SERVICES MANAGER SINUS RHYTHM WITH BBB. AMBULATES IN ROOM WITH LITTLE ASSISTANCE FROM STAFF. VITALS STABLE. VOIDS PER URINAL. HEALTH EDUCATION GIVEN TO PT ON HEALTHY LIFESTYLE AND SOME CHANGED NEEDED IN REGARDS TO HEALTH. VERBALIZES UNDERSTANDING. NO ISSUES OR CONCERNS NOTED. WILL CONTINUE TO ASSESS AND MONITOR PER NURSING
[2020-01-02 20:03] VITALS: BP 126/42
--- NOTE | 2020-01-02 20:27 | NUR ---
RECEIVED PT'S CARE AROUND 0715; PT. ON BED RESTING WITH EYES CLOSED; EQUAL CHEST RISING NOTICED; SR ON THE MONITOR; DURING AM ASSESSMENT AOX4; NO C/O PAIN; AM MEDICATION GIVEN; PER SPOUSE REQUESTED TO BE CALL BY PHYSICIAN; PHYSICIAN NOTIFIED; SPOUSE & PT. EDUCATED ABOUT INR & BLOOD THINNNERS; ST. UNDERSTANDING; EDUCATED ABOUT I/0; ST. UNDERSTANDING; ASSESSMENT CHARGED; FOLLOWING POC; PASSED ON REPORT;
--- NOTE | 2020-01-03 04:30 | NUR ---
PT IS ALERT AND ORIENTED X4. ON ROOM AIR. DENIES ANY PAIN OR CHEST PAIN NOTED. WATCHING TV THIS EVENING. SINUS RHYTHM ON THE PRODUCT PICKER [address] BUNDLE BRANCH. VOIDS PER URINAL. ABDOMEN IS ROUND AND BOWEL SOUNDS ACTIVE X4 QUADRANTS. SOME TEACHING DONE ON HEALTHY LIFE STYLE IN REGARDS TO SMOKING AND DRINKING , AND DIET EDUCATION PROVIDED. CALL LIGHT WITHIN REACH IF NEEDS ASSISTANCE. WILL CONTINUE TO MONITOR AND ASSESS
[2020-01-03 05:07] VITALS: BP 132/62
[2020-01-03 08:14] LABS: INR 1.8; PROTIME 18.2 Seconds (9.3-11.4)
[2020-01-03 08:16] VITALS: BP 104/62
[2020-01-03] MEDS ORDERED: PACERONE 200 M200 M1 PO (08:23)
[2020-01-03] MEDS ORDERED: COUMADIN 5 MG TA5 M1 PO (08:23)
[2020-01-03] MEDS ORDERED: EFFIENT10 MG PO (08:23)
[2020-01-03] MEDS ORDERED: LIPITOR40 MG PO (08:24)
[2020-01-03] MEDS ORDERED: ASPIR 8181 MG PO (08:24)
[2020-01-03] MEDS ORDERED: COREG6.25 MG PO (08:24)
[2020-01-03] MEDS ORDERED: COZAAR 25 MG TA25 M2 PO (08:24)
[2020-01-03 09:11] VITALS: BP 104/62
--- NOTE | 2020-01-03 09:25 | NUR ---
PT ALERT AND ORIENTED TIMES FOUR. VSS, SR ON TELE. PT DENIES PAIN/SOA. PT UP AB DANICA WITH STEADY GAIT. PT TOLERATES MEDS AND MEALS. PLANS FOR DISCHARGE TODAY. PT PROGRESSING TOWRADS POC GOALS.
--- NOTE | 2020-01-03 10:52 | NUR ---
Patient to dc today. per RN he needs INR f/u for warfarin and reports he will f/u at [facility]. Vouched medications in amount of $114.15
== END 2020-01-03 11:42 | disposition home or self-care (01) | DRG 228 ==
LOC: ER 18:47 → ICU 19:27 → EROBS 19:27 → ER 19:32 → ICU 23:08 → 2N 12-28 10:42
PROVIDERS: Emergency Medicine; Internal Medicine Cardiovascular Disease; Nurse Practitioner; Nurse Practitioner Family; ADMIT Hospitalist
PROC: B215YZZ Fluoroscopy of Left Heart using Other Contrast (ICD-10-PCS; principal; 2019-12-24)
PROC: 02C03ZZ Extirpation of Matter from Coronary Artery, One Artery, Percutaneous Approach (ICD-10-PCS; principal; 2019-12-24)
PROC: B211YZZ Fluoroscopy of Multiple Coronary Arteries using Other Contrast (ICD-10-PCS; principal; 2019-12-24)
PROC: 027034Z Dilation of Coronary Artery, One Artery with Drug-eluting Intraluminal Device, Percutaneous Approach (ICD-10-PCS; principal; 2019-12-24)
PROC: 027004Z Dilation of Coronary Artery, One Artery with Drug-eluting Intraluminal Device, Open Approach (ICD-10-PCS; principal; 2019-12-24)
PROC: 5A02210 Assistance with Cardiac Output using Balloon Pump, Continuous (ICD-10-PCS; principal; 2019-12-24)
PROC: 4A023N7 Measurement of Cardiac Sampling and Pressure, Left Heart, Percutaneous Approach (ICD-10-PCS; principal; 2019-12-24)
DX: I21.19 ST elevation (STEMI) myocardial infarction involving other coronary artery of inferior wall (principal); I49.01 Ventricular fibrillation; R57.0 Cardiogenic shock; N17.9 Acute kidney failure, unspecified; E87.1 Hypo-osmolality and hyponatremia; G93.40 Encephalopathy, unspecified; E87.2 Acidosis; E78.00 Pure hypercholesterolemia, unspecified; F10.10 Alcohol abuse, uncomplicated; I25.10 Atherosclerotic heart disease of native coronary artery without angina pectoris; I10 Essential (primary) hypertension; F17.210 Nicotine dependence, cigarettes, uncomplicated; I95.9 Hypotension, unspecified; K74.60 Unspecified cirrhosis of liver; I25.5 Ischemic cardiomyopathy; R09.02 Hypoxemia; Z20.828 Contact with and (suspected) exposure to other viral communicable diseases; Z95.5 Presence of coronary angioplasty implant and graft; Z82.49 Family history of ischemic heart disease and other diseases of the circulatory system; Z71.6 Tobacco abuse counseling; Z79.82 Long term (current) use of aspirin; Z79.899 Other long term (current) drug therapy
CPT/HCPCS: 10078; 10081

== ENCOUNTER 2020-01-04 10:54 | Inpatient (IN) | payer OTHER | END 2020-01-09 10:51 | disposition home or self-care (01) | DRG 378 | LOC: ER 10:54 → EROBS 14:31 → ICU 20:41 → 2N 01-07 18:42 | PROVIDERS: ADMIT Internal Medicine | PROC: 30233N1 Transfusion of Nonautologous Red Blood Cells into Peripheral Vein, Percutaneous Approach (ICD-10-PCS; principal; 2020-01-04) | PROC: 30233K1 Transfusion of Nonautologous Frozen Plasma into Peripheral Vein, Percutaneous Approach (ICD-10-PCS; principal; 2020-01-04) | PROC: 0DB68ZX Excision of Stomach, Via Natural or Artificial Opening Endoscopic, Diagnostic (ICD-10-PCS; 2020-01-07) | DX: K25.4 Chronic or unspecified gastric ulcer with hemorrhage (principal); D68.9 Coagulation defect, unspecified; N17.9 Acute kidney failure, unspecified; K29.71 Gastritis, unspecified, with bleeding; I95.9 Hypotension, unspecified; N18.9 Chronic kidney disease, unspecified; I25.10 Atherosclerotic heart disease of native coronary artery without angina pectoris; K21.9 Gastro-esophageal reflux disease without esophagitis; E78.5 Hyperlipidemia, unspecified; F17.210 Nicotine dependence, cigarettes, uncomplicated; E86.9 Volume depletion, unspecified; K74.60 Unspecified cirrhosis of liver; F10.10 Alcohol abuse, uncomplicated; D64.9 Anemia, unspecified; I25.5 Ischemic cardiomyopathy; Z79.82 Long term (current) use of aspirin; Z79.899 Other long term (current) drug therapy; I25.2 Old myocardial infarction; Z95.5 Presence of coronary angioplasty implant and graft; Z86.010 Personal history of colon polyps; Z80.0 Family history of malignant neoplasm of digestive organs; Z20.828 Contact with and (suspected) exposure to other viral communicable diseases ==

== ENCOUNTER → 2020-05-28 | Outpatient (CLI) | payer OTHER ==
[~2020-05-28] MED LIST changes: +ASPIR 8181 MG PO; +COREG6.25 MG PO; +COUMADIN 5 MG TA5 M1 PO; +COZAAR 25 MG TA25 M2 PO; +EFFIENT10 MG PO; +PACERONE 200 M200 M1 PO; +PANTOPRAZOLE SO40 M1 PO
== END ==
LOC: SJCVC 16:25
PROVIDERS: ATTEND Internal Medicine Cardiovascular Disease
DX: Z51.81 Encounter for therapeutic drug level monitoring (principal); E78.5 Hyperlipidemia, unspecified; F17.200 Nicotine dependence, unspecified, uncomplicated; Z79.01 Long term (current) use of anticoagulants; Z79.899 Other long term (current) drug therapy

== ENCOUNTER → 2020-06-19 | Outpatient (CLI) | payer OTHER ==
--- NOTE | 2020-06-19 12:45 | 2DMMODE ---
[facility] [place] [address] 2 D/M-MODE ECHOCARDIOGRAM Name: CONSTANCE ESPINOSA Room #: REG WENDY Davis#: [id number] Admission: 06/19/20 Attend Phys: Adama Zuluaga MD Discharge: Date of : 74 Report #: [id number] THIS REPORT FOR: cc: FAM - No family physician/PCP FAM - No family physician/PCP Adama Zuluaga MD ~ APPROVED REPORT Study performed: 06/19/2020 11:35:24 EXAM: Comprehensive 2D, Doppler, and color-flow Echocardiogram Patient Location: Echo lab Room #: 2 Status: routine BSA: 2.45 HR: 62 bpm Rhythm: NSR Other Information Study Quality: Good Indications Cardiomyopathy Hx: 2D Dimensions RVDd: 43.32 mm IVSd: 6.61 (7-11mm) LVOT Diam: 23.37 (18-24mm) LVDd: 64.38 mm PWd: 7.53 (7-11mm) Ascending Ao: 30.22 (22-36mm) LVDs: 54.79 (25-40mm) Aortic Root: 31.36 mm IVC: 17.00 mm Volumes Left Atrial Volume (Systole) Single Plane 4CH: 63.94 mL Single Plane 2CH: 101.46 mL LA ESV Index: 36.40 mL/m2 Aortic Valve AoV Peak Wily.: 1.40 m/s AO Peak Gr.: 7.81 mmHg LVOT Max P.87 mmHg LVOT Max V: 1.31 m/s KESHA Vmax: 4.02 cm2 [facility] [address] [place] [address] 2 D/M-MODE ECHOCARDIOGRAM Name: CONSTANCE ESPINOSA Room #: REG [facility] [id number] Admission: 06/19/20 Attend Phys: Adama Zuluaga MD Discharge: Date of : 74 Report #: [id number] Mitral Valve E/A Ratio: 1.3 MV Decel. Time: 198.69 ms MV E Max Wily.: 0.89 m/s MV A Wily.: 0.70 m/s MV PHT: 57.62 ms IVRT: 96.89 ms Pulmonary Vein P Vein S: 0.63 m/s P Vein A: 0.45 m/s P Vein D: 0.65 m/s P Vein A Dur.: 166.1 msec P Vein S/D Ratio: 0.97 Tricuspid Valve TR Peak Wily.: 2.82 m/s TR Peak Gr.: 31.87 mmHg PA Pressure: 37.00 mmHg Left Ventricle Left ventricle is dilated. Regional wall motion abnormalities are noted. There is normal left ventricular wall thickness. Left ventricular systolic function is moderate to severely decreased. LVEF is 30%. Grade IV - fixed restrictive diastolic dysfunction. Right Ventricle The right ventricle is normal size. The right ventricular systolic function is normal. Atria Left atrium is dilated. Right atrium is dilated. Aortic Valve The Aortic valve is sclerotic. No aortic regurgitation is present. There is no aortic valvular stenosis. Mitral Valve The mitral valve is normal in structure. Moderate mitral regurgitation. No evidence of mitral valve stenosis. Tricuspid Valve The tricuspid valve is normal in structure. Mild tricuspid regurgitation. Estimated PAP 37mmHg. Pulmonic Valve The pulmonary valve is normal in structure. Trace pulmonic [facility] [address] [place] [address] 2 D/M-MODE ECHOCARDIOGRAM Name: CONSTANCE ESPINOSA Room #: [facility]#: [id number] Admission: 06/19/20 Attend Phys: Adama Zuluaga MD Discharge: Date of : 74 Report #: [id number] regurgitation. Great Vessels The aortic root is normal in size. The ascending aorta is normal in size. IVC is normal in size and collapses >50% with inspiration. Pericardium There is no pericardial effusion. <Conclusion> Left ventricle is dilated. Left ventricular systolic function is moderate to severely decreased. Grade IV - fixed restrictive diastolic dysfunction. The right ventricle is normal size. Left atrium is dilated. The Aortic valve is sclerotic. Moderate mitral regurgitation. Mild tricuspid regurgitation. Estimated PAP 37mmHg. <ELECTRONICALLY SIGNED> By: Adama Zuluaga MD 06/19/20 1245 1245 1245 Adama Zuluaga MD /INF
== END ==
LOC: CV 11:24
PROVIDERS: ATTEND Internal Medicine Cardiovascular Disease
DX: I08.1 Rheumatic disorders of both mitral and tricuspid valves (principal); I25.5 Ischemic cardiomyopathy

== ENCOUNTER → 2020-07-30 | Outpatient (CLI) | payer OTHER | LOC: SJCVC 14:50 | PROVIDERS: ATTEND Internal Medicine Cardiovascular Disease | DX: R94.31 Abnormal electrocardiogram [ECG] [EKG] (principal); I25.10 Atherosclerotic heart disease of native coronary artery without angina pectoris; I49.01 Ventricular fibrillation; I25.2 Old myocardial infarction; I25.5 Ischemic cardiomyopathy; F17.200 Nicotine dependence, unspecified, uncomplicated; Z95.810 Presence of automatic (implantable) cardiac defibrillator; Z79.899 Other long term (current) drug therapy ==

== ENCOUNTER 2020-08-30 11:46 | Emergency (ER) | payer OTHER ==
[~2020-08-30] VITALS: Ht 198.1 cm; Wt 99.8 kg
--- NOTE | 2020-08-30 12:33 | EKG ---
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: mando : 1970 Requested By: Dangelo Santos Order Number: [id number] MD: Malik Simmons Measurements Intervals [place] Rate: 91 P: 92 FL: 128 QRS: 134 QRSD: 128 T: 104 QT: 380 QTc: 468 Interpretive Statements Sinus rhythm Probable left atrial enlargement RBBB and LPFB Probable inferior infarct, old Anterolateral infarct, age indeterminate Compared to ECG 01/04/2020 10:57:17 Myocardial infarct finding now present Sinus tachycardia no longer present Electronically Signed On 08-30-2020 12:33:28 BACK PANEL PADDER by Malik Simmons [email or web address] <ELECTRONICALLY SIGNED> By: Malik Simmons MD, [facility] 08/30/20 1233 1221 1221 Malik Simmons MD, FACC /EPI
[2020-08-30] MEDS ORDERED: CLOPIDOGREL75 MG PO (12:43)
[2020-08-30] MEDS ORDERED: CARVEDILOL3.125 MG PO (12:43)
[2020-08-30] MEDS ORDERED: COZAAR 25 MG TA25 M1 PO (12:43)
[2020-08-30 13:07] LABS: ABSOLUTE NEUTROPHILS 3.5 thou/uL (1.4-8.2); BASOPHILS 0.8 % (0.0-2.0); EOSINOPHILS 2.1 % (0.0-3.0); HEMATOCRIT 40.6 % (42.0-52.0); HEMOGLOBIN 12.6 gm/dL (14.0-18.0); LYMPHOCYTES 31.1 % (24.0-44.0); MCH 21.8 pg (26.0-34.0); MCHC 31.1 g/dL (28.0-37.0); MCV 70.1 fL (80.0-100.0); MONOCYTES 9.8 % (1.0-8.0); PLATELET COUNT 387 thou/uL (150-400); POLYS 56.2 % (36.0-66.0); RBC 5.79 mil/uL (4.50-6.00); RDW 19.9 % (10.5-14.5); WBC 6.1 thou/uL (4.0-11.0)
[2020-08-30 13:14] LABS: ANION GAP 11 mmol/L (7-16); BUN 9 mg/dL (7-18); CALCIUM 9.9 mg/dL (8.5-10.1); CHLORIDE 100 mmol/L (98-107); CO2 27 mmol/L (21-32); CREATININE 1.3 mg/dL (0.7-1.3); GLUCOSE 118 mg/dL (74-106); POTASSIUM 4.1 mmol/L (3.5-5.1); SODIUM 138 mmol/L (136-145)
[2020-08-30 13:25] LABS: ALBUMIN 3.7 g/dL (3.4-5.0); LIPASE 143 U/L (73-393); SGOT 26 U/L (15-37); SGPT 22 U/L (16-63); TOTAL BILIRUBIN 0.5 mg/dL (0.2-1.0); TOTAL PROTEIN 7.8 g/dL (6.4-8.2); TROPONIN-I <0.06 ng/mL (<0.06)
[2020-08-30 13:45] LABS: ANISOCYTOSIS 1+; MICROCYTES 1+; TARGET CELLS OCCASIONAL
[2020-08-30] MEDS ORDERED: ZOFRAN ODT4 MG PO (14:01)
[2020-08-30 14:08] VITALS: BP 123/69
== END 2020-08-30 14:08 | disposition home or self-care (01) ==
LOC: ER 11:46
PROVIDERS: Emergency Medicine
DX: R11.2 Nausea with vomiting, unspecified (principal); F17.210 Nicotine dependence, cigarettes, uncomplicated; Z79.899 Other long term (current) drug therapy; Z79.01 Long term (current) use of anticoagulants; Z20.828 Contact with and (suspected) exposure to other viral communicable diseases

== ENCOUNTER 2020-08-31 03:14 | Inpatient (IN) | payer OTHER ==
[2020-08-31] VITALS (7 sets, daily range): BP systolic 111–158; BP diastolic 68–98
[~2020-08-31] VITALS: Ht 182.9 cm; Wt 91.6 kg
[~2020-08-31 03:14] MED LIST changes: +CARVEDILOL3.125 MG PO; +CLOPIDOGREL75 MG PO; +COZAAR 25 MG TA25 M1 PO; +ZOFRAN ODT4 MG PO
[2020-08-31 03:57] LABS: BASOPHILS 1.9 % (0.0-2.0); EOSINOPHILS 1.9 % (0.0-3.0); HEMATOCRIT 38.6 % (42.0-52.0); HEMOGLOBIN 12.1 gm/dL (14.0-18.0); LYMPHOCYTES 33.2 % (24.0-44.0); MCH 22.1 pg (26.0-34.0); MCHC 31.4 g/dL (28.0-37.0); MCV 70.4 fL (80.0-100.0); PLATELET COUNT 344 thou/uL (150-400); RBC 5.48 mil/uL (4.50-6.00); RDW 19.1 % (10.5-14.5); WBC 5.9 thou/uL (4.0-11.0)
[2020-08-31 04:02] LABS: CALCIUM 9.7 mg/dL (8.5-10.1); CREATININE 1.4 mg/dL (0.7-1.3); POTASSIUM 3.8 mmol/L (3.5-5.1)
[2020-08-31 04:08] LABS: ALBUMIN 3.6 g/dL (3.4-5.0); TOTAL BILIRUBIN 0.4 mg/dL (0.2-1.0); TOTAL PROTEIN 7.5 g/dL (6.4-8.2)
[2020-08-31 04:42] LABS: ANISOCYTOSIS 2+; HYPOCHROMASIA 2+
[2020-08-31 04:43] LABS: MICROCYTES 2+
--- NOTE | 2020-08-31 18:30 | NUR ---
PT RECEIVED FROM THE ER AT 1135 ALERT AND IN NO ACUTE DISTRESS. N&V BETTER AFTER LEAVING THE ER. DID HAVE ABD PAINS BUT BETTER AFTER IV PROTONIX GIVEN. PT REMAINS NPO. PLAN FOR EGD IN AM.
--- NOTE | 2020-09-01 04:34 | NUR ---
PT AMBULATING IN ROOM INDEPENDENTLY AND IS TOLERATING WELL. DENIES PAIN. DENIES NAUSEA. RESTING COMFORTABLY. NO NEEDS VOICED. CALL LIGHT WITHIN REACH. FREQUENT OBSERVATON.
[2020-09-01 08:08] VITALS: BP 104/57
[2020-09-01 10:17] VITALS: BP 114/75
[2020-09-01 10:58] LABS: CALCIUM 9.3 mg/dL (8.5-10.1); CREATININE 1.2 mg/dL (0.7-1.3); POTASSIUM 4.7 mmol/L (3.5-5.1)
[2020-09-01] MEDS ORDERED: PROTONIX40 M2 PO (16:38)
[2020-09-01] MEDS ORDERED: CARAFATE1 GM/10 ML PO (16:41)
[2020-09-01 17:01] VITALS: BP 114/75
--- NOTE | 2020-09-01 17:35 | NUR ---
PT ASSESSED AT START OF SHIFT. NPO THIS AM FOR EGD. 4 GASTRIC ULCERS SOME OF WHICH HAD NOT HEALED SINCE LAST SUMMER EGD. PT FREE OF PAIN AND NAUSEA NOW. TOLERATING CLEAR LIQUIDS WELL AND WILL ADVANCE DIET TOLERATED. DISCHARGED TO HOME AND WILL F/U W/ DR. CARLOS YUAN.
--- NOTE | 2020-09-03 17:06 | PATH ---
[facility] [place] [address] PATHOLOGY RPT PROCEDURE Name: CONSTANCE MCINTOSH Room #: 437-P DIS IN M.R.#: [id number] Admission: 08/31/20 Date of : 74 Discharge: 09/01/20 Report #: [id number] Path Case #: [id number] [facility] Accession Number: [id number] . 01 Material submitted: . PART A: gastrointestinal site - BX OF GASTRIC ULCER PART B: gastrointestinal site - BX OF RANDOM GASTRIC . 01 Clinical history: . NAUSEA, VOMITING, ABD PAIN, HX OF ULCERS . 02 Diagnosis: A. Gastric mucosa, gastric ulcer, endoscopic biopsy: - Moderate to marked acute gastritis with features of reactive gastropathy. - Active ulceration not identified. - Focal intestinal metaplasia present. - Negative for atrophy or dysplasia. - Negative for Helicobacter pylori (properly controlled immunohistochemical stain performed). . B. Gastric mucosa, random gastric, endoscopic biopsy: - Focal moderate to marked acute gastritis with features of reactive gastropathy identified in other fragments. - Negative for intestinal metaplasia, atrophy or dysplasia. - Negative for Helicobacter pylori (properly controlled immunohistochemical stain performed). . (IUV:isela; 09/03/2020) MBR 09/03/2020 1327 Local . 02 Comment: An intensive search for Helicobacter pylori-like organisms is negative. Absence of such organisms does not entirely exclude the possibility and may be due to sampling. Other possible etiologies may include chemical gastritis, autoimmune gastritis, gastritis associated with inflammatory bowel disease. Please correlate with clinical, endoscopic, and microbiological studies if clinically indicated. (IUV:brick maker; 09/03/2020) . 02 Electronically signed: . Estephania Perez MD, Pathologist NPI- [id number] . 01 Gross description: . A. The specimen is received in formalin, labeled "Constance Mcintosh BX of gastric ulcer" and consists of multiple fragments of pink-anaya tissue [address] [address] PATHOLOGY RPT PROCEDURE Name: CONSTANCE MCINTOSH Room #: 437-P DIS IN M.R.#: [id number] Admission: 08/31/20 Date of : 74 Discharge: 09/01/20 Report #: [id number] Path Case #: [id number] measuring 1.1 x 0.6 x 0.3 cm aggregate which are entirely submitted in A1. . B. The specimen is received in formalin, labeled "Arnaldo, Constance, BX of random gastric" and consists of multiple fragments of pink-anaya tissue measuring 1.2 x 0.7 x 0.3 cm in aggregate which are entirely submitted in B1. (SDY; 09/02/2020) SYU/SYU 09/02/2020 1417 Local . 02 Pathologist provided ICD-10: K29.00, K25.9 . 02 CPT . 427666, 243999, E41137 Specimen Comment: A courtesy copy of this report has been sent to [phone], [phone] Specimen Comment: [phone] Specimen Comment: Report sent to / DR MORENO Performed at: 01 [facility] [address] [place] [address] [address], [place], [place] [id number] MD Scott Jacobson MD Phone: [phone] Performed at: [address] [id number] MD Estephania Perez MD Phone: [phone]
== END 2020-09-01 17:43 | disposition home or self-care (01) | DRG 384 ==
LOC: ER 03:14 → EROBS 05:37 → 4S 11:30
PROVIDERS: Emergency Medicine; Hospitalist; ADMIT Hospitalist; ATTEND Hospitalist
PROC: 0DB78ZX Excision of Stomach, Pylorus, Via Natural or Artificial Opening Endoscopic, Diagnostic (ICD-10-PCS; principal; 2020-09-01)
DX: K25.9 Gastric ulcer, unspecified as acute or chronic, without hemorrhage or perforation (principal); N17.9 Acute kidney failure, unspecified; F17.210 Nicotine dependence, cigarettes, uncomplicated; K29.70 Gastritis, unspecified, without bleeding; K74.60 Unspecified cirrhosis of liver; D50.9 Iron deficiency anemia, unspecified; I25.10 Atherosclerotic heart disease of native coronary artery without angina pectoris; Z86.74 Personal history of sudden cardiac arrest; Z79.899 Other long term (current) drug therapy; I25.2 Old myocardial infarction; Z80.0 Family history of malignant neoplasm of digestive organs; Z79.01 Long term (current) use of anticoagulants; Z87.19 Personal history of other diseases of the digestive system; Z71.41 Alcohol abuse counseling and surveillance of alcoholic
CPT/HCPCS: 10102; 62110; 62900

== ENCOUNTER → 2020-09-23 | Outpatient (CLI) | payer OTHER ==
[~2020-09-23] MED LIST changes: +CARAFATE1 GM/10 ML PO; +PROTONIX40 M2 PO
== END ==
LOC: SJCVCIMAG 09:51
PROVIDERS: ATTEND Internal Medicine Cardiovascular Disease
DX: I08.1 Rheumatic disorders of both mitral and tricuspid valves (principal); I25.10 Atherosclerotic heart disease of native coronary artery without angina pectoris

== ENCOUNTER → 2020-10-01 | Outpatient (CLI) | payer OTHER | LOC: SJCVC 10:29 | PROVIDERS: ATTEND Internal Medicine Cardiovascular Disease | DX: R94.31 Abnormal electrocardiogram [ECG] [EKG] (principal); I45.10 Unspecified right bundle-branch block; I25.5 Ischemic cardiomyopathy; I49.01 Ventricular fibrillation; I25.10 Atherosclerotic heart disease of native coronary artery without angina pectoris; I25.2 Old myocardial infarction; E78.00 Pure hypercholesterolemia, unspecified; F17.200 Nicotine dependence, unspecified, uncomplicated; Z95.810 Presence of automatic (implantable) cardiac defibrillator; Z72.0 Tobacco use; Z79.899 Other long term (current) drug therapy ==

== ENCOUNTER → 2020-10-02 | Outpatient (CLI) | payer OTHER | LOC: LAB 14:48 | PROVIDERS: ATTEND Internal Medicine Cardiovascular Disease | DX: Z01.812 Encounter for preprocedural laboratory examination (principal); Z20.822 Contact with and (suspected) exposure to COVID-19 ==

== ENCOUNTER 2020-10-07 09:21 | Observation (INO) | payer OTHER ==
[2020-10-07] VITALS (9 sets, daily range): BP systolic 112–153; BP diastolic 61–100
[~2020-10-07] VITALS: Ht 198.1 cm; Wt 104.3 kg
[2020-10-07 10:29] LABS: BASOPHILS 1.5 % (0.0-2.0); EOSINOPHILS 2.7 % (0.0-3.0); HEMATOCRIT 28.7 % (42.0-52.0); LYMPHOCYTES 38.4 % (24.0-44.0); MCH 21.8 pg (26.0-34.0); MCHC 31.5 g/dL (28.0-37.0); PLATELET COUNT 323 thou/uL (150-400); POLYS 47.4 % (36.0-66.0); RBC 4.15 mil/uL (4.50-6.00); RDW 19.1 % (10.5-14.5); WBC 4.3 thou/uL (4.0-11.0)
[2020-10-07 10:38] LABS: CALCIUM 8.7 mg/dL (8.5-10.1); CREATININE 1.2 mg/dL (0.7-1.3)
[2020-10-07 10:40] LABS: PROTIME 10.9 Seconds (9.3-11.4)
[2020-10-07 10:52] LABS: ALBUMIN 3.3 g/dL (3.4-5.0); TOTAL BILIRUBIN 0.5 mg/dL (0.2-1.0)
[2020-10-07 11:12] LABS: ANISOCYTOSIS 1+; HYPOCHROMASIA 1+; PLATELET ESTIMATE NORMAL
--- NOTE | 2020-10-07 14:30 | NUR ---
50 YO MALE ADMITTED TO CCU ROOM 205 POST INSERTION OF MED[employer]ONIC AICD WHICH IS MRI COMPATIBLE. LEFT ARM IMMOBLIZER IN PLACE.
--- NOTE | 2020-10-07 18:45 | NUR ---
PATIENT IS PROGRESSING TOWARDS OUTCOME GOALS HE IS COMFORTABLE AND TOLERATING DIET. VSS. WILL CONTINUE TO MONITOR. AT BEDSIDE AND REASSURANCE GIVEN TO HER AND THE PATIENT.
--- NOTE | 2020-10-08 07:09 | NUR ---
PT CONT TO HAVE IMMOBILIZER ON. C/O OF SURGICAL SITE PAIN-HYDROCODONE GIVEN. MONITOR SHOW SR WITH OCCAS OF PACED RHYTEM. VOIDS PER URINAL. PT HAS UNDERSTANDING OF POST OP INSTRUCTIONS OR RESTRICTION. PROGRESSING TO GOALS. CONT PLAN OF CARE
[2020-10-08 08:00] VITALS: BP 147/83
[2020-10-08 11:10] VITALS: BP 147/83
--- NOTE | 2020-10-08 11:43 | NUR ---
PT IS AXOX4, PLEASANT. VSS. PT HAD AICD PLACED 10/07/20 IN LEFT CHEST. SITE IS C/D/I, NO DRESSING. CHEST XRAY DONE IN AM. PLACEMENT OF LEADS VERIFIED. CARDIOLOGY CONSULTED. POC TO DISCHARGE HOME. DISCHARGE EDUCATION COMPLETED ON FOLLOW UP APPT, MEDICATIONS. PACEMAKER EDUCATION HANDOUT PROVIDED. PT COMMUNICATED UNDERSTANDING. PT DISCHARGED WITH TO HOME IN PERSONAL VEHICLE. NO CONCERNS AT THIS TIME.
--- NOTE | 2020-10-08 12:38 | P ---
[facility] [place] [address] PROCEDURE REPORT Name: CONSTANCE ESPINOSA Room #: [facility] Amanda Davis#: [id number] Admission: 10/07/20 Attend Phys: Brenton Fong MD Discharge: 10/08/20 Date of : 74 Report #: [id number] THIS REPORT FOR: cc: BOB - No family physician/PCP FAM - No family physician/PCP Brenton Fong MD ~ DATE OF SERVICE: 10/07/2020 PROCEDURE: Implantable cardioverter-defibrillator implantation. PREOPERATIVE DIAGNOSES: 1. Ischemic cardiomyopathy. 2. Chronic left ventricular systolic heart failure. POSTOPERATIVE DIAGNOSES: 1. Ischemic cardiomyopathy. 2. Chronic left ventricular systolic heart failure. HISTORY: The patient is a 50-year-old with history of coronary artery disease, status post myocardial infarction with cardiac arrest with resultant chronic left ventricular systolic heart failure due to ischemic cardiomyopathy causes, who has been on optimal medical therapy. He is here for ICD implantation for primary prevention of sudden cardiac . ANESTHESIA: The patient underwent general anesthesia with no anesthesia related complications. DESCRIPTION OF PROCEDURE: The patient underwent informed consent. We discussed the details of the procedure including the risks, which include bleeding, infection, vascular damage, cardiac perforation and pneumothorax. He understood these risks and is willing to proceed. The patient was brought to EP laboratory in a fasting and sedated state and prepped and draped in a sterile fashion, underwent a venogram and received IV antibiotics prior to initiation of the procedure. Next, lidocaine was injected below the level of left clavicle. Incision was made, pocket created over the prepectoral fascia. Access was obtained twice to left axillary vein using the extrathoracic approach with sheaths positioned using the modified Seldinger technique. Next, under fluoroscopy, leads were positioned in the right ventricular apex, right atrial appendage with adequate pacing and sensing thresholds. I then sutured to the prepectoral fascia using Ethibond. Device connected. Pocket was irrigated with vancomycin. Pocket closed in 2 layers using 2-0 for the deep layer, 3-0 for the mid layer and surgical glue for the outer skin layer. The patient awoke neurologically and hemodynamically intact. No complications and no significant bleeding. Implanted device and leads were PlayCanvas with a generator, model WIOS1P0, serial #[id number]. Atrial lead was a 5076, 52 cm, serial #[id number]. [address] [address] PROCEDURE REPORT Name: CONSTANCE ESPINOSA Room #: 205-P [facility] Amanda Davis#: [id number] Admission: 10/07/20 Attend Phys: Brenton Fong MD Discharge: 10/08/20 Date of : 74 Report #: [id number] RV lead was a 6935, 62 cm, serial #[id number]. Atrial lead demonstrated P-wave 4.2 millivolts, pacing impedance 667 ohms, pacing threshold of 1 volt at 0.5 milliseconds. RV lead demonstrated R waves of 15.8 millivolts, pacing impedance 520 ohms, pacing threshold 0.7 volts at 0.5 milliseconds. Device was programmed to DDD 60-130 mode with a VT zone of 180-220 beats per minute with 3 rounds of burst followed by 3 rounds of ramp followed by max output shocks. VF zone was set greater than 220 beats per minute with ATP while charging followed by max output shocks. CONCLUSIONS: 1. Successful dual-chamber implantable cardioverter-defibrillator implantation. 2. Satisfactory atrial and ventricular pacing and sensing thresholds. <ELECTRONICALLY SIGNED> By: Brenton Fong MD 10/08/20 1238 1312 1321 Brenton Fong MD /nt
== END 2020-10-08 12:14 | disposition home or self-care (01) ==
LOC: CATH 09:21 → 2N 14:22
PROVIDERS: ADMIT Internal Medicine Cardiovascular Disease; ATTEND Internal Medicine Cardiovascular Disease
DX: I25.5 Ischemic cardiomyopathy (principal); I49.01 Ventricular fibrillation; I25.10 Atherosclerotic heart disease of native coronary artery without angina pectoris; I50.22 Chronic systolic (congestive) heart failure; Z79.899 Other long term (current) drug therapy; F17.200 Nicotine dependence, unspecified, uncomplicated

== ENCOUNTER → 2020-11-25 | Outpatient (CLI) | payer OTHER | LOC: SJCVC 13:01 | PROVIDERS: ATTEND Internal Medicine Cardiovascular Disease | DX: R94.31 Abnormal electrocardiogram [ECG] [EKG] (principal); I45.10 Unspecified right bundle-branch block; I25.10 Atherosclerotic heart disease of native coronary artery without angina pectoris; I49.01 Ventricular fibrillation; I25.5 Ischemic cardiomyopathy; E78.00 Pure hypercholesterolemia, unspecified; E78.5 Hyperlipidemia, unspecified; I25.2 Old myocardial infarction; Z95.810 Presence of automatic (implantable) cardiac defibrillator; Z79.899 Other long term (current) drug therapy ==

== ENCOUNTER → 2021-05-28 | Outpatient (CLI) | payer OTHER | LOC: SJCVCIMAG 10:48 | PROVIDERS: ATTEND Internal Medicine Cardiovascular Disease | DX: I08.0 Rheumatic disorders of both mitral and aortic valves (principal); R94.31 Abnormal electrocardiogram [ECG] [EKG]; I25.10 Atherosclerotic heart disease of native coronary artery without angina pectoris; I25.5 Ischemic cardiomyopathy; E78.00 Pure hypercholesterolemia, unspecified; M79.606 Pain in leg, unspecified; K64.9 Unspecified hemorrhoids; E78.5 Hyperlipidemia, unspecified; F17.200 Nicotine dependence, unspecified, uncomplicated; Z95.810 Presence of automatic (implantable) cardiac defibrillator; Z79.01 Long term (current) use of anticoagulants; Z51.81 Encounter for therapeutic drug level monitoring; Z79.899 Other long term (current) drug therapy; Z72.89 Other problems related to lifestyle; Z95.5 Presence of coronary angioplasty implant and graft ==

== ENCOUNTER → 2021-06-25 | Outpatient (CLI) | payer OTHER | LOC: SJCVCIMAG 09:13 | PROVIDERS: ATTEND Nuclear Medicine Nuclear Cardiology | DX: I70.203 Unspecified atherosclerosis of native arteries of extremities, bilateral legs (principal); M79.605 Pain in left leg; M79.604 Pain in right leg ==

== ENCOUNTER → 2021-06-30 | Outpatient (CLI) | payer OTHER ==
[~2021-06-30] MED LIST changes: +PLAVIX 75 MG TA75 MG PO; +WARFARIN SODIUM5 MG PO
== END ==
LOC: SJCVC 11:17
PROVIDERS: ATTEND Internal Medicine Cardiovascular Disease
DX: Z51.81 Encounter for therapeutic drug level monitoring (principal); Z79.01 Long term (current) use of anticoagulants

== ENCOUNTER → 2021-07-10 | Outpatient (CLI) | payer OTHER ==
[~2021-07-10] VITALS: Ht 198.1 cm; Wt 101.2 kg
[~2021-07-10] MED LIST changes: +PROTONIX 20 MG20 MG PO
[2021-07-10 09:32] VITALS: BP 118/76
[2021-07-10 09:41] LABS: CALCIUM 8.7 mg/dL (8.5-10.1); CREATININE 1.1 mg/dL (0.7-1.3); POTASSIUM 3.9 mmol/L (3.5-5.1)
== END | disposition home or self-care (01) ==
LOC: CATH 08:24
PROVIDERS: ATTEND Nuclear Medicine Nuclear Cardiology
DX: I70.211 Atherosclerosis of native arteries of extremities with intermittent claudication, right leg (principal); I70.1 Atherosclerosis of renal artery; M79.604 Pain in right leg; M79.605 Pain in left leg; I10 Essential (primary) hypertension; I25.10 Atherosclerotic heart disease of native coronary artery without angina pectoris; E78.5 Hyperlipidemia, unspecified; I25.2 Old myocardial infarction; K21.9 Gastro-esophageal reflux disease without esophagitis; I42.9 Cardiomyopathy, unspecified; F17.210 Nicotine dependence, cigarettes, uncomplicated; Z98.890 Other specified postprocedural states; Z79.899 Other long term (current) drug therapy; Z82.49 Family history of ischemic heart disease and other diseases of the circulatory system

== ENCOUNTER → 2021-07-17 | Outpatient (CLI) | payer OTHER ==
[~2021-07-17] VITALS: Ht 198.1 cm; Wt 101.2 kg
[2021-07-17 08:25] VITALS: BP 109/69
[2021-07-17 08:45] LABS: HEMATOCRIT 30.9 % (42.0-52.0); HEMOGLOBIN 9.8 gm/dL (14.0-18.0); MCH 21.5 pg (26.0-34.0); MCHC 31.6 g/dL (28.0-37.0); RBC 4.55 mil/uL (4.50-6.00); RDW 21.2 % (10.5-14.5); WBC 5.1 thou/uL (4.0-11.0)
[2021-07-17 09:10] LABS: PROTIME 10.9 Seconds (10.5-12.1)
[2021-07-17 09:55] LABS: CALCIUM 9.1 mg/dL (8.5-10.1); CREATININE 1.2 mg/dL (0.7-1.3); POTASSIUM 3.9 mmol/L (3.5-5.1)
--- NOTE | 2021-07-17 16:08 | NUR ---
PT UP AMB TO BR WITH NO ISSUES. ZIYAD ALEXANDER SPOKE WITH ABOUT PROCEDURE AND HIS RECOVERY. SHE ALSO SENT A SCRIPT TO [facility] ON [address] AGAIN FOR PT PLAVIX.
== END | disposition home or self-care (01) ==
LOC: CATH 07:13
PROVIDERS: ATTEND Nuclear Medicine Nuclear Cardiology
DX: I70.212 Atherosclerosis of native arteries of extremities with intermittent claudication, left leg (principal); M79.605 Pain in left leg; M79.604 Pain in right leg; I25.2 Old myocardial infarction; I25.10 Atherosclerotic heart disease of native coronary artery without angina pectoris; E78.00 Pure hypercholesterolemia, unspecified; E78.5 Hyperlipidemia, unspecified; K21.9 Gastro-esophageal reflux disease without esophagitis; I25.5 Ischemic cardiomyopathy; F17.210 Nicotine dependence, cigarettes, uncomplicated; Z98.890 Other specified postprocedural states; Z79.899 Other long term (current) drug therapy; Z82.49 Family history of ischemic heart disease and other diseases of the circulatory system; Z20.822 Contact with and (suspected) exposure to COVID-19; Z86.718 Personal history of other venous thrombosis and embolism; Z79.01 Long term (current) use of anticoagulants; Z87.19 Personal history of other diseases of the digestive system

== ENCOUNTER → 2021-07-23 | Outpatient (CLI) | payer OTHER | LOC: SJCVC 14:26 | PROVIDERS: ATTEND Internal Medicine Cardiovascular Disease | DX: R94.31 Abnormal electrocardiogram [ECG] [EKG] (principal); I45.10 Unspecified right bundle-branch block; I25.10 Atherosclerotic heart disease of native coronary artery without angina pectoris; I25.5 Ischemic cardiomyopathy; E78.00 Pure hypercholesterolemia, unspecified; E78.5 Hyperlipidemia, unspecified; F17.200 Nicotine dependence, unspecified, uncomplicated; Z86.74 Personal history of sudden cardiac arrest; Z72.0 Tobacco use; Z79.01 Long term (current) use of anticoagulants; Z79.899 Other long term (current) drug therapy; Z72.89 Other problems related to lifestyle; Z95.818 Presence of other cardiac implants and grafts; Z95.810 Presence of automatic (implantable) cardiac defibrillator; Z95.5 Presence of coronary angioplasty implant and graft ==

== ENCOUNTER → 2021-09-12 | Outpatient (CLI) | payer OTHER | LOC: SJCVC 12:57 | PROVIDERS: ATTEND Internal Medicine Cardiovascular Disease | DX: Z51.81 Encounter for therapeutic drug level monitoring (principal); Z79.01 Long term (current) use of anticoagulants; I25.10 Atherosclerotic heart disease of native coronary artery without angina pectoris; I49.01 Ventricular fibrillation; I25.5 Ischemic cardiomyopathy; I82.409 Acute embolism and thrombosis of unspecified deep veins of unspecified lower extremity; I73.9 Peripheral vascular disease, unspecified; I25.2 Old myocardial infarction; Z95.810 Presence of automatic (implantable) cardiac defibrillator; E78.00 Pure hypercholesterolemia, unspecified; Z72.0 Tobacco use; R93.1 Abnormal findings on diagnostic imaging of heart and coronary circulation; M79.606 Pain in leg, unspecified; R42 Dizziness and giddiness ==